=== PATIENT | female | born 1950 | race Caucasian/White ===

== ENCOUNTER 2020-03-30 08:19 | Outpatient (REF) | payer MEDICARE, SELFPAY ==
[2020-03-30 11:12] LABS: Glucose Urine UA NEG (NEG); Leukocyte Esterase Urine NEG (NEG); Nitrite Urine NEG (NEG); Specific Gravity - Urine 1.025 (1.005-1.025); Urine Blood NEG (NEG); Urine Ketones NEG (NEG); Urine Protein NEG (NEG-TRACE)
[2020-03-30 11:14] LABS: Appearance Urine CLEAR; Color Urine YELLOW
[2020-03-30 12:01] LABS: Vitamin D 25-OH Total 47.7 ng/mL (>30)
[2020-03-30 12:02] LABS: Alanine Aminotransferase 34 U/L (0-31); Albumin Level 4.6 g/dL (3.5-5.0); Alkaline Phosphatase 95 U/L (39-117); Anion Gap 14 (12-20); Aspartate Amino Transferase 27 U/L (5-31); Bilirubin Total 1.1 mg/dL (0.0-1.0); Blood Urea Nitrogen 17 mg/dL (9-16); Calcium 9.6 mg/dL (8.4-10.2); Carbon Dioxide 28 mmol/L (22-29); Chloride 102 mmol/L (96-108); Cholesterol 200 mg/dL; Estimated Glomerular Filt Rate > 60; Glucose Fasting 84 mg/dL (60-99); HDL Cholesterol 47 mg/dL; LDL Cholesterol Calculated 121 mg/dl; Potassium 3.9 mmol/l (3.3-5.1); Sodium 140 mmol/L (135-145); Triglycerides 160 mg/dL
[2020-03-30 12:18] LABS: Folate 18.1 ng/mL (> or = 4.0); Vitamin B12 334 pg/mL (200-900)
== END 2020-03-30 08:20 | disposition home or self-care (01) ==
LOC: HO.HMGCLDS 08:19
PROVIDERS: PCP Internal Medicine; Visit Provider Internal Medicine
DX: E78.5 Hyperlipidemia, unspecified (principal); M85.80 Other specified disorders of bone density and structure, unspecified site; I10 Essential (primary) hypertension
CPT/HCPCS: 80053; 80061; 81003; 82306; 82607; 82746

== ENCOUNTER 2021-02-16 07:28 | Outpatient (REF) | payer MEDICARE, SELFPAY ==
[2021-02-16 11:31] LABS: Hematocrit 40.8 % (37.0-47.0); Hemoglobin 13.1 g/dl (12.0-16.0); Mean Corpuscular HGB Conc 32.1 g/dl (31.0-35.0); Mean Corpuscular Hemoglobin 25.8 pg (27.0-33.0); Mean Corpuscular Volume 80.5 fL (80.0-98.0); Mean Platelet Volume 9.7 fL (9.4-12.3); Platelet Count 253 X10*3/uL (160-400); Red Blood Count 5.07 X10*6/uL (4.20-5.50); Red Cell Distribution Width 14.9 % (11.0-16.0); White Blood Count 6.4 X10*3/uL (4.8-10.8)
[2021-02-16 12:15] LABS: Alanine Aminotransferase 21 U/L (0-31); Albumin Level 4.3 g/dL (3.5-5.0); Alkaline Phosphatase 89 U/L (39-117); Anion Gap 14 (12-20); Aspartate Amino Transferase 22 U/L (5-31); Bilirubin Total 1.1 mg/dL (0.0-1.0); Blood Urea Nitrogen 20 mg/dL (9-16); Calcium 9.8 mg/dL (8.4-10.2); Carbon Dioxide 29 mmol/L (22-29); Chloride 105 mmol/L (96-108); Cholesterol 197 mg/dL; Estimated Glomerular Filt Rate > 60; Glucose Fasting 88 mg/dL (60-99); HDL Cholesterol 43 mg/dL; LDL Cholesterol Calculated 126 mg/dl; Potassium 4.1 mmol/L (3.3-5.1); Sodium 144 mmol/L (135-145); Total Protein 6.9 g/dL (6.5-8.0); Triglycerides 143 mg/dL
== END 2021-02-16 07:29 | disposition home or self-care (01) ==
LOC: HO.HMGCLDS 07:28
PROVIDERS: PCP Internal Medicine; Visit Provider Internal Medicine
DX: E78.5 Hyperlipidemia, unspecified (principal); I10 Essential (primary) hypertension
CPT/HCPCS: 36415; 80053; 80061; 85027

== ENCOUNTER 2021-11-05 07:37 | Outpatient (REF) | payer MEDICARE, SELFPAY ==
[2021-11-05 11:35] LABS: Appearance Urine CLEAR; Color Urine YELLOW; Glucose Urine UA NEG (NEG); Leukocyte Esterase Urine NEG (NEG); Nitrite Urine NEG (NEG); PH 7.5 (5.0-8.0); Urine Blood NEG (NEG); Urine Ketones NEG (NEG); Urine Protein NEG (NEG-TRACE)
[2021-11-05 11:47] LABS: Hematocrit 41.5 % (37.0-47.0); Hemoglobin 13.5 g/dl (12.0-16.0); Mean Corpuscular HGB Conc 32.5 g/dl (31.0-35.0); Mean Corpuscular Hemoglobin 26.3 pg (27.0-33.0); Mean Corpuscular Volume 80.7 fL (80.0-98.0); Mean Platelet Volume 9.8 fL (9.4-12.3); Platelet Count 268 X10*3/uL (160-400); Red Blood Count 5.14 X10*6/uL (4.20-5.50); Red Cell Distribution Width 14.5 % (11.0-16.0); White Blood Count 6.1 X10*3/uL (4.8-10.8)
[2021-11-05 12:00] LABS: Alanine Aminotransferase 20 U/L (0-31); Albumin Level 4.5 g/dL (3.5-5.0); Alkaline Phosphatase 88 U/L (39-117); Anion Gap 15 (12-20); Aspartate Amino Transferase 23 U/L (5-31); Bilirubin Total 1.4 mg/dL (0.0-1.0); Blood Urea Nitrogen 16 mg/dL (9-16); Calcium 9.7 mg/dL (8.4-10.2); Carbon Dioxide 28 mmol/L (22-29); Chloride 102 mmol/L (96-108); Cholesterol 202 mg/dL; Estimated Glomerular Filt Rate > 60; Glucose Random 100 mg/dL (60-115); HDL Cholesterol 41 mg/dL; LDL Cholesterol Calculated 136 mg/dl; Sodium 141 mmol/L (135-145); TSH reflex Free T4 1.62 uIU/mL (0.32-4.0); Total Protein 6.8 g/dL (6.5-8.0); Triglycerides 126 mg/dL
[2021-11-05 12:40] LABS: Squamous Epithelial Cell Urine TRACE /LPF; WBC Urine 0-2 /HPF (0-4)
[2021-11-05 12:41] LABS: RBC Urine 0-2 /HPF (0)
== END 2021-11-05 07:38 | disposition home or self-care (01) ==
LOC: HO.HMGCLDS 07:37
PROVIDERS: PCP Internal Medicine; Visit Provider Internal Medicine
DX: Z00.00 Encounter for general adult medical examination without abnormal findings (principal); I10 Essential (primary) hypertension; J45.909 Unspecified asthma, uncomplicated; E78.5 Hyperlipidemia, unspecified
CPT/HCPCS: 36415; 80053; 80061; 81001; 84443; 85027

== ENCOUNTER 2022-02-27 07:11 | Outpatient (REF) | payer MEDICARE, SELFPAY ==
[2022-02-27 11:28] LABS: Alanine Aminotransferase 24 U/L (0-31); Albumin Level 4.5 g/dL (3.5-5.0); Alkaline Phosphatase 99 U/L (39-117); Anion Gap 14 (12-20); Aspartate Amino Transferase 24 U/L (5-31); Bilirubin Total 1.2 mg/dL (0.0-1.0); Blood Urea Nitrogen 17 mg/dL (9-16); Calcium 9.6 mg/dL (8.4-10.2); Carbon Dioxide 30 mmol/L (22-29); Chloride 102 mmol/L (96-108); Cholesterol 175 mg/dL; Estimated Glomerular Filt Rate > 60; Glucose Fasting 93 mg/dL (60-99); HDL Cholesterol 47 mg/dL; LDL Cholesterol Calculated 104 mg/dl; Potassium 4.1 mmol/L (3.3-5.1); Sodium 142 mmol/L (135-145); Total Protein 6.9 g/dL (6.5-8.0); Triglycerides 122 mg/dL
== END 2022-02-27 07:12 | disposition home or self-care (01) ==
LOC: HO.HMGCLDS 07:11
PROVIDERS: PCP Internal Medicine; Visit Provider Internal Medicine
DX: E78.5 Hyperlipidemia, unspecified (principal); I10 Essential (primary) hypertension
CPT/HCPCS: 36415; 80053; 80061

== ENCOUNTER 2023-01-27 07:31 | Outpatient (REF) | payer MEDICARE, SELFPAY ==
[2023-01-27 12:48] LABS: Alanine Aminotransferase 27 U/L (0-31); Albumin Level 4.2 g/dL (3.5-5.0); Alkaline Phosphatase 60 U/L (39-117); Anion Gap 15 (12-20); Aspartate Amino Transferase 28 U/L (5-31); Blood Urea Nitrogen 16 mg/dL (9-16); Calcium 9.8 mg/dL (8.4-10.2); Carbon Dioxide 28 mmol/L (22-29); Chloride 105 mmol/L (96-108); Cholesterol 161 mg/dL (<200); Estimated Glomerular Filt Rate > 60; Glucose Fasting 95 mg/dL (60-99); HDL Cholesterol 43 mg/dL (>40); LDL Cholesterol Calculated 101 mg/dL (<100); Potassium 3.6 mmol/L (3.3-5.1); Sodium 144 mmol/L (135-145); Total Protein 6.9 g/dL (6.5-8.0); Triglycerides 87 mg/dL (<150)
[2023-01-27 13:13] LABS: Vitamin D 25-OH Total 85.5 ng/mL (>30)
== END 2023-01-27 07:32 | disposition home or self-care (01) ==
LOC: HO.HMGCLDS 07:31
PROVIDERS: PCP Internal Medicine; Visit Provider Internal Medicine
DX: I10 Essential (primary) hypertension (principal); M81.0 Age-related osteoporosis without current pathological fracture; E55.9 Vitamin D deficiency, unspecified
CPT/HCPCS: 36415; 80053; 80061; 82306

== ENCOUNTER 2023-02-14 08:19 | Outpatient (AMB) | payer MEDICARE, SELFPAY ==
[2023-02-14 08:21] VITALS: BP 120/64; PULSE 72; O2SAT 100; BMI 24.6
--- NOTE | 2023-02-14 08:21 | MHC.PC.OV ---
Vital Signs 02/14/23 08:21 Height 5 ft 1 in Weight 130 lb 4 oz BMI 24.6 BP 120/64 Blood Pressure Location Lt brachial Position Sitting Pulse 72 Pulse Source Pulse Oximeter Pulse Oximetry (%) 100 Oxygen Delivery Method Room Air Intake Visit Reasons: Medication Follow Up Intake Note: pt is here to go over lab results Allergies bee venom protein (honey bee) Allergy (Intermediate, Verified 02/14/23 08:25) Facial Swelling adhesive tape Allergy (Unknown, Verified 02/14/23 08:25) rash aspirin Allergy (Unknown, Verified 02/14/23 08:25) bleeding cortisone Allergy (Unknown, Verified 02/14/23 08:25) stroke like symptoms Iodinated Contrast Media Allergy (Unknown, Verified 02/14/23 08:25) stroke like symptoms latex Allergy (Unknown, Verified 02/14/23 08:25) rash morphine Allergy (Unknown, Verified 02/14/23 08:25) severe vomiting pravastatin [Pravachol] Allergy (Unknown, Verified 02/14/23 08:25) muscle pain and shakiness atorvastatin [Lipitor] Adverse Reaction (Unknown, Verified 02/14/23 08:25) muscle weakness Medication List - Last Reconciled 02/14/23 by Gwen Salomon MD albuterol sulfate 90 mcg/actuation 2 puffs inhalation Q4-6H PRN alendronate (Fosamax) 70 mg PO QWEEK betamethasone dipropionate 0.05% appl topical BID cholecalciferol (vitamin D3) 125 mcg PO DAILY coQ10 (ubiquinol) (Qunol Alberto CoQ10) 100 mg PO BID CPAP (CPAP Machine/Device) 5 cm of H2O pressure with large WISP nasal mask CPAP (CPAP Machine/Device) wear CPAP at bedtime; ranging from 6cm to 20cm H2O hydrochlorothiazide 25 mg PO DAILY [id number]-lgy-glpfyoc-ast 1,000-230-60 mg (MegaRed [place]-3 Krill Oil) 1 cap PO BEDTIME lovastatin 40 mg PO DAILY Tobacco use date assessed: 02/14/23 Fall risk assessment: 1 Fall in past year Last assessed Fall Risk: 02/14/23 Dental Screening Dental Screen Date: 02/14/23 Did you have a dental visit in the last 12 months?: Yes Did you have a dental problem in the last 6 months where you did not have access to dental care?: No Was dental information given to patient?: Patient has dentist HPI Medication Follow Up HPI Details Patient presents for the follow-up of hypertension hyperlipidemia and osteoporosis. [facility] Medical History GERD (gastroesophageal reflux disease) Osteopenia Annual physical exam Right wrist joint infection KODY (obstructive sleep apnea) HTN (hypertension) Asthma Carpal tunnel syndrome Hyperlipidemia Surgical History History of kidney stones History of colonoscopy History of cataract surgery History of appendectomy History of shoulder surgery Family History Mother Colon cancer HTN (hypertension) Sister COPD (chronic obstructive pulmonary disease) Father Diabetes mellitus HTN (hypertension) Myocardial infarction Social History Housing: House Alcohol intake: current Alcohol intake frequency: does not drink Patient Tobacco Use Status: Never used Tobacco e-Cigarette/Vaping Use: Never Used Current occupational status: retired Cognitive needs: No Hearing needs: No Vision needs: Yes Questionnaire PHQ-9 Over the last 2 weeks, how often have you been bothered by any of the following problems? 1. Little interest or pleasure in doing things: not at all 2. Feeling down, depressed, or hopeless: not at all 3. Trouble falling or staying asleep, or sleeping too much: not at all 4. Feeling tired or having little energy: not at all 5. Poor appetite or overeating: not at all 6. Feeling bad about yourself - or that you are a failure or have let yourself or your family down: not at all 7. Trouble concentrating on things, such as reading the newspaper or watching television: not at all 8. Moving or speaking so slowly that other people could have noticed. Or the opposite - being so fidgety or restless that you have been moving around a lot more than usual: not at all 9. Thoughts that you would be better off or of hurting yourself in some way: not at all Total score: 0 Source: Developed by Drs. Dylan Farooq, Trista Corbin, Power Pena and colleagues, with an educational sky from [employer]. Thrive Questionnaire Date Thrive assessed: 02/14/23 I am a: Patient What is your living situation today?: I have a steady place to live Within the past 12 months, did the food you bought not last and you didn't have the money to get more?: Never true Within the past 12 months, did you worry whether your food would run out before you got money to buy more?: Never true Do you have trouble paying for medicines?: No Do you have trouble getting transportation to medical appointments?: No Do you have trouble paying your heating and electricity bill?: No Do you have trouble taking care of your child, family member or friend?: No Do you have trouble with day-to-day activities such as bathing, preparing meals, shopping, managing finances, etc.?: No Are you currently unemployed and looking for a job?: No Are you interested in more education?: No VERONICA-7 AMB Questionnaire VERONICA-7 Date VERONICA - 7 assessed: 02/14/23 Feeling nervous, anxious, or on edge: 0 = Not at all Not being able to stop or control worryin = Not at all Worrying too much about different things: 0 = Not at all Trouble relaxin = Not at all Being so restless that it is hard to sit still: 0 = Not at all Becoming easily annoyed or irritable: 0 = Not at all Feeling afraid as if something awful might happen: 0 = Not at all Total VERONICA-7 score (0-4 normal; 5-9 mild; 10-14 moderate; 15-21 severe): 0 Source: Developed by Drs. Dylan Farooq, Trista Corbin, Power Pena and colleagues, with an educational sky from [employer]. Review of Systems Const All systems reviewed & are unremarkable except as noted in HPI and below Reports no additional complaints Eyes Reports no additional complaints ENT Reports no additional complaints Card Reports no additional complaints Resp Reports no additional complaints GI Reports no additional complaints Reports no additional complaints Physical exam (Primary Care) Vital Signs: Last Vital Signs Pulse 72 02/14/23 08:21 BP 120/64 02/14/23 08:21 Pulse Ox 100 02/14/23 08:21 Oxygen Delivery Method Room Air 02/14/23 08:21 BMI result Body Mass Index 24.6 Tobacco/Smoking Status: Tobacco use Status Tobacco use date assessed 02/14/23 02/14/23 08:29 Patient Tobacco Use Status Never used Tobacco 02/14/23 08:29 e-Cigarette/Vaping Use Never Used 02/14/23 08:29 PHQ-9: PHQ-9 Score PHQ-9: Total score 0 02/14/23 09:21 Thrive Assessment: Date of Thrive Assessment Date Thrive assessed 02/14/23 02/14/23 09:21 Const General: no acute distress Resp Effort & Inspection: normal respiratory effort Auscultation: clear to auscultation bilaterally Cardio Rhythm: regular rhythm Heart sounds: S1 normal heart sound present and S2 normal heart sound present GI Inspection: Yes normal to inspection Assessment and Plan Assessment & Plan (1) HTN (hypertension): Code(s): I10 - Essential (primary) hypertension Plan: Continue hydrochlorothiazide (2) Age related osteoporosis: Comment: DEXA 11/19 Tscore -2.8, started Fosamax Code(s): M81.0 - Age-related osteoporosis without current pathological fracture Plan: Continue Fosamax and vitamin-D (3) Hyperlipidemia: Code(s): E78.5 - Hyperlipidemia, unspecified Plan: Continue statin, return for physical in May Orders: Orders Basic Metabolic Panel Fasting 1 Week I10 - Essential (primary) hypertension Medications: Changed From alendronate (Fosamax) Schedule next PCP appt for future refills 70 mg PO QWEEK 12 tabs 0RF To alendronate (Fosamax) 70 mg PO QWEEK 12 tabs 3RF Coding Level of Care Code Est Pt Level 4 (97394) Diagnoses HTN (hypertension) I10 Age related osteoporosis M81.0 Hyperlipidemia E78.5
== END 2023-02-14 09:26 | disposition home or self-care (01) ==
PROVIDERS: PCP Internal Medicine; Visit Provider Internal Medicine
DX: I10 Essential (primary) hypertension (principal); M81.0 Age-related osteoporosis without current pathological fracture; E78.5 Hyperlipidemia, unspecified
CPT/HCPCS: 99214

== ENCOUNTER 2023-03-20 07:24 | Outpatient (REF) | payer MEDICARE, SELFPAY ==
[2023-03-20 12:24] LABS: Anion Gap 12 (12-20); Blood Urea Nitrogen 20 mg/dL (9-16); Calcium 9.8 mg/dL (8.4-10.2); Carbon Dioxide 30 mmol/L (22-29); Chloride 104 mmol/L (96-108); Estimated Glomerular Filt Rate > 60; Glucose Fasting 94 mg/dL (60-99); Potassium 3.5 mmol/L (3.3-5.1); Sodium 142 mmol/L (135-145)
== END 2023-03-20 07:25 | disposition home or self-care (01) ==
LOC: HO.HMGCLDS 07:24
PROVIDERS: PCP Internal Medicine; Visit Provider Internal Medicine
DX: I10 Essential (primary) hypertension (principal)
CPT/HCPCS: 36415; 80048

== ENCOUNTER 2023-05-28 08:16 | Outpatient (AMB) | payer MEDICARE, SELFPAY ==
[2023-05-28 08:31] VITALS: BP 124/66; PULSE 70; O2SAT 98; BMI 25.3
--- NOTE | 2023-05-28 08:31 | AM.OFFVISMDC ---
Intake Vital Signs 05/28/23 08:31 Height 5 ft 1 in Weight 134 lb BMI 25.3 BP 124/66 Blood Pressure Location Lt brachial Position Sitting Pulse 70 Pulse Source Pulse Oximeter Pulse Oximetry (%) 98 Oxygen Delivery Method Room Air Intake Visit Reasons: AWV Intake Note: Pt is here today for AWV. Allergies bee venom protein (honey bee) Allergy (Intermediate, Verified 05/28/23 08:35) Facial Swelling adhesive tape Allergy (Unknown, Verified 05/28/23 08:35) rash aspirin Allergy (Unknown, Verified 05/28/23 08:35) bleeding cortisone Allergy (Unknown, Verified 05/28/23 08:35) stroke like symptoms Iodinated Contrast Media Allergy (Unknown, Verified 05/28/23 08:35) stroke like symptoms latex Allergy (Unknown, Verified 05/28/23 08:35) rash morphine Allergy (Unknown, Verified 05/28/23 08:35) severe vomiting pravastatin [Pravachol] Allergy (Unknown, Verified 05/28/23 08:35) muscle pain and shakiness atorvastatin [Lipitor] Adverse Reaction (Unknown, Verified 05/28/23 08:35) muscle weakness Medication List - Last Reconciled 05/28/23 by Gwen Salomon MD albuterol sulfate 90 mcg/actuation 2 puffs inhalation Q4-6H PRN alendronate (Fosamax) 70 mg PO QWEEK betamethasone dipropionate 0.05% appl topical BID cholecalciferol (vitamin D3) 125 mcg PO DAILY coQ10 (ubiquinol) (Qunol Alberto CoQ10) 100 mg PO BID CPAP (CPAP Machine/Device) 5 cm of H2O pressure with large WISP nasal mask CPAP (CPAP Machine/Device) wear CPAP at bedtime; ranging from 6cm to 20cm H2O [id number]-[id number]-aus-[id number]-ast 1,000-230-60 mg (MegaRed [place]-3 Krill Oil) 1 cap PO BEDTIME lovastatin 40 mg PO DAILY HPI AWV HPI Details Patient presents for annual visit. She complains of feeling tired and having joint and muscle achiness worse in the evening. Patient denies joint swelling or morning stiffness. She has not been using CPAP because is not able to tolerate it. Patient tried different masks in the past and would like to be referred to Pulmonary Clinic at [facility]. Initiated the conversation about Advanced Directives. Advanced Directives help? patients prepare for current and future decisions about their medical treatment? and place of care. Discussed with patient that it is a process where a patients? current condition and prognosis are reviewed, their wishes for information? regarding their illness are elicited, and likely medical dilemmas are presented? and options discussed. The form can be amended as needed, reviewed yearly and? make changes as needed IPPE/AWV ? year old presents? for her ? Annual? Wellness Visit, initial visit.? Medical / Social History Reviewed? Past Medical History ?Yes? . ? [place]? of Care / Care Team list updated ?Yes . ? Surgical/Hospitalization? History ?Yes . ? Current Medications? (including OTC and supplements) ?Yes . ? Family History ?Yes? . ? Tobacco? Control form ?Yes . ? AUDIT-C (Alcohol use) form? ?Yes . ? Illicit drug use in Social? History ?Yes . ? Current diagnosis of? depression? ?No ? Appropriate PHQ2/PHQ9? completed ?Yes . ? Data entered by ?Medical? Distribution Technician and reviewed by provider ? Fall Risk ? Fall? History? Have you had any falls with? injury in the past year? ?No . ? Have you had two or more? falls in the past year? ?No . ? Fall Risk Assessment: ?No? falls in the past year . ? HRA filled out by? the patient, reviewed by Provider and scanned. ? IPPE/AWV ? Balance? [place]? ?Yes . ? Tandem? walk ?Yes . ? Walk and? Turn ?Yes . ? Rise from? sit to stand ?Yes . ?Vision? Corrective? lens ?Yes ? Vision? screen ? Up-to-date, has an appointment [] for vision? screening and glaucoma screening ?Hearing? Whisper? test ?pass .? Initiated the conversation about Advanced Directives. Advanced Directives help? patients prepare for current and future decisions about their medical treatment? and place of care. Discussed with patient that it is a process where a patients? current condition and prognosis are reviewed, their wishes for information? regarding their illness are elicited, and likely medical dilemmas are presented? and options discussed. The form can be amended as needed, reviewed yearly and? make changes as needed Written? Plan?Completed. See Patient? Documents. COUNT INCLUDES [facility] Medical History (Updated 05/28/23 @ 09:13 by Gwen Salomon MD) GERD (gastroesophageal reflux disease) Annual physical exam Right wrist joint infection KODY (obstructive sleep apnea) HTN (hypertension) Asthma Carpal tunnel syndrome Hyperlipidemia Surgical History History of kidney stones History of colonoscopy History of cataract surgery History of appendectomy History of shoulder surgery Family History (Updated 05/28/23 @ 08:37 by Sarah Cadet Edilia) Mother Colon cancer HTN (hypertension) Sister COPD (chronic obstructive pulmonary disease) Father Diabetes mellitus HTN (hypertension) Myocardial infarction Social History Housing: House Alcohol intake: current Alcohol intake frequency: does not drink Patient Tobacco Use Status: Never used Tobacco e-Cigarette/Vaping Use: Never Used Current occupational status: retired Cognitive needs: No Hearing needs: No Vision needs: Yes Questionnaire Medicare Wellness Checkup [age] What gender do you identify with?: female During the past 4 weeks, how much have you been bothered by emotional problems such as feeling anxious, depressed, irritable, sad or downhearted, and blue?: not at all During the past 4 weeks, has your physical & emotional health limited your social activities with family, friends, neighbors, or groups?: not at all During the past 4 weeks, how much bodily pain have you generally had?: very mild pain During the past 4 weeks, was someone available to help you if you needed & wanted help?: yes, as much as I wanted During the past 4 weeks, what was the hardest physical activity you could do for at least 2 minutes?: very heavy Can you get to places out of walking distance without help? (For eg., can you travel alone on buses, taxis or drive your car?): Yes Can you go shopping for groceries or clothes without someone's help?: Yes Can you prepare your own meals?: Yes Can you do your housework without help?: Yes Because of any health problems, do you need the help of another person with your personal care needs such as eating, bathing, dressing or getting around the house?: No Can you handle your own money without help?: Yes During the past 4 weeks, how would you rate your health in general?: very good During the past 4 weeks how have things been going for you?: very well; could hardly better Are you having difficulties driving your car?: no Do you always fasten your seat belt when you are in a car?: yes, usually During past 4 weeks, have you been bothered by the following: never: Falling or dizzy when standing up, Sexual problems?, Trouble eating well?, Teeth or denture problems? and Problems using the telephone? and sometimes: Tiredness or fatigue? Have you fallen 2 or more times in the past year?: No Are you afraid of falling?: No Are you a smoker?: no During the past 4 weeks, how many drinks of wine, beer, or other alcoholic beverages did you have?: no alcohol at all Do you exercise for about 20 minutes 3 or more times a week?: yes, most of the time Have you been given information to help with the following?: yes: Hazards in your house that might hurt you? and yes: Keeping track of your medications? How often do you have trouble taking medicines the way you have been told to take them?: I always take medicine as prescribed How confident are you that you can control & manage most of your health problems?: very confident What is your race?: White Mini Mental State Exam (MMSE) Orientation What is the (year) (season) (date) (day) (month)?: year, season, date, day and month Where are we (state) (county) (town or city) (hospital) (floor)?: state, county, town or city, hospital/clinic and floor Registration Name of 3 unrelated objects clearly and slowly, then ask patient to repeat all 3 of them. (1st repeat determines score. Make sure they can repeat all three): object 1, object 2 and object 3 Attention & Calculation (CHOOSE ONE) Spell WORLD backwards (DLROW): 5 letters Recall Ask patient to repeat the 3 items from question #3.: object 1, object 2 and object 3 Language Show patient a wristwatch & ask what it is. Repeat for pencil.: watch and pencil Ask the patient to repeat the phrase 'No ifs, ands, or buts' after you.: correct Ask the patient to 'take a piece of paper with their right hand' 'fold paper in half' 'place paper on floor': take paper in right hand, fold paper in half and place paper on floor Print the sentence 'CLOSE YOUR EYES' on a piece. If patient actually closes eyes then score.: followed written direction Give patient a blank piece of paper & ask to write a sentence. Score if it contains a noun & verb.: sentence contains subject and verb Score Score: 29 Activity of Daily Living Bathing - sponge bath, tub bath or shower: receives no assistance (gets in/out by self, if usual bathing means Dressing - getting clothes from closets & drawers, including inner/outer garments & fasteners.: gets clothes & gets completely dressed without help Toileting - going to the 'toilet room' for urine/bowel elimination & cleaning self/arranging clothes: goes to toilet room, cleans self, arranges clothes without help Transfer: moves in & out of bed and chair without help (may use support object) Continence: controls urination/bowel movements completely by self Feeding: feeds self without help Total Score: 0 Information obtained from: patient Using telephone: independent Traveling: independent Shopping: independent Preparing meals: independent Housework: independent Taking medicine: independent Managing money: independent PHQ-9 Over the last 2 weeks, how often have you been bothered by any of the following problems? 1. Little interest or pleasure in doing things: not at all 2. Feeling down, depressed, or hopeless: not at all 3. Trouble falling or staying asleep, or sleeping too much: several days 4. Feeling tired or having little energy: several days 5. Poor appetite or overeating: not at all 6. Feeling bad about yourself - or that you are a failure or have let yourself or your family down: not at all 7. Trouble concentrating on things, such as reading the newspaper or watching television: not at all 8. Moving or speaking so slowly that other people could have noticed. Or the opposite - being so fidgety or restless that you have been moving around a lot more than usual: not at all 9. Thoughts that you would be better off or of hurting yourself in some way: not at all Total score: 2 Depression Screening Interpretation: Negative Depression Screening Done: Yes Source: Developed by Drs. Dylan Farooq, Trista Corbin, Power Pena and colleagues, with an educational sky from [employer]. Review of Systems Const All systems reviewed & are unremarkable except as noted in HPI and below Reports no additional complaints Eyes Reports no additional complaints ENT Reports no additional complaints Card Reports no additional complaints Resp Reports no additional complaints GI Reports no additional complaints Reports no additional complaints Musc Reports no additional complaints Physical Exam Vital Signs: Last Vital Signs Pulse 70 05/28/23 08:31 BP 124/66 05/28/23 08:31 Pulse Ox 98 05/28/23 08:31 Oxygen Delivery Method Room Air 05/28/23 08:31 BMI result Body Mass Index 25.3 Const General: no acute distress HEENT Head: Yes normal to inspection Eyes General: appearance normal, both eyes and all related structures Neck Neck: Yes no lymphadenopathy and Yes supple Resp Effort & Inspection: normal respiratory effort Auscultation: clear to auscultation bilaterally Cardio Rhythm: regular rhythm Heart sounds: S1 normal heart sound present and S2 normal heart sound present GI Inspection: Yes normal to inspection Palpation (GI): Soft to palpation and No hepatosplenomegaly present Auscultation: normal bowel sounds Extrem General: Yes no clubbing, cyanosis or edema Assessment & Plan Assessment & Plan (1) KODY (obstructive sleep apnea): Comment: for 10 years not able to tolerate Cpap, used to see pulmonology in [place] Code(s): G47.33 - Obstructive sleep apnea (adult) (pediatric) Plan: refer to [facility] Pulmonology (2) Age related osteoporosis: Comment: DEXA 11/19 Tscore -2.8, started Fosamax Code(s): M81.0 - Age-related osteoporosis without current pathological fracture Plan: Continue vitamin-D and Fosamax until February when patient is due to recheck DEXA (3) Annual physical exam: Code(s): Z00.00 - Encounter for general adult medical examination without abnormal findings Plan: well balanced diet, regular exercise discussed (4) Hyperlipidemia: Code(s): E78.5 - Hyperlipidemia, unspecified Plan: Continue lovastatin and CO Q10. If the muscle aches continues patient was advised to hold lovastatin for a month (5) HTN (hypertension): Code(s): I10 - Essential (primary) hypertension Plan: Decrease hydrochlorothiazide to 12.5 mg and check comprehensive panel for borderline low potassium level. Follow-up in 3 months Orders: Orders Comprehensive [place]. Panel Fast 3 Months I10 - Essential (primary) hypertension Referrals Pulmonology Referral G47.33 - Obstructive sleep apnea (adult) (pediatric) Medications: Discontinued hydrochlorothiazide Discontinued Reason: Doctor's Order 25 mg PO DAILY 90 tabs 3RF Quality Reporting (2019) Depression/Bipolar (159/160/161/177) PHQ-9: Total score: 2 Coding Level of Care Code Medicare Subsequent (G0439) Diagnoses KODY (obstructive sleep apnea) G47.33 Age related osteoporosis M81.0 Annual physical exam Z00.00 Hyperlipidemia E78.5 HTN (hypertension) I10 CPT Codes Advance Care Planning - Time spent: 1-15 minutes, not on file ([id number]) Advance Care Planning Advance Care Planning discussion: Exists, not on file Forms completed: Health Care Proxy Time spent: 1-15 minutes, not on file
== END 2023-05-28 09:09 | disposition home or self-care (01) ==
PROVIDERS: PCP Internal Medicine; Visit Provider Internal Medicine
DX: Z00.00 Encounter for general adult medical examination without abnormal findings (principal); G47.33 Obstructive sleep apnea (adult) (pediatric); M81.0 Age-related osteoporosis without current pathological fracture; E78.5 Hyperlipidemia, unspecified; I10 Essential (primary) hypertension
CPT/HCPCS: 1124F; G0439

== ENCOUNTER 2023-08-15 12:53 | Outpatient (AMB) | payer MEDICARE, SELFPAY ==
[2023-08-15 12:53] VITALS: BP 120/70; PULSE 65; TEMP 36.3; O2SAT 98; BMI 24.9
--- NOTE | 2023-08-15 12:53 | AM.OFFWIN_ITS ---
Intake Vital Signs 08/15/23 12:53 Height 5 ft 1 in Weight 132 lb BMI 24.9 BP 120/70 Blood Pressure Location Lt brachial Position Sitting Pulse 65 Pulse Source Pulse Oximeter Temp 97.4 F Temp Source Temporal Artery Scan Pulse Oximetry (%) 98 Oxygen Delivery Method Room Air Intake Visit Reasons: EP diarreah/dehydration Intake Note: pt is here today for diarreah and dehydration started 1 week ago Patient Tobacco Use Status: Never used Tobacco Allergies bee venom protein (honey bee) Allergy (Intermediate, Verified 08/15/23 12:59) Facial Swelling adhesive tape Allergy (Unknown, Verified 08/15/23 12:59) rash aspirin Allergy (Unknown, Verified 08/15/23 12:59) bleeding cortisone Allergy (Unknown, Verified 08/15/23 12:59) stroke like symptoms Iodinated Contrast Media Allergy (Unknown, Verified 08/15/23 12:59) stroke like symptoms latex Allergy (Unknown, Verified 08/15/23 12:59) rash morphine Allergy (Unknown, Verified 08/15/23 12:59) severe vomiting pravastatin [Pravachol] Allergy (Unknown, Verified 08/15/23 12:59) muscle pain and shakiness atorvastatin [Lipitor] Adverse Reaction (Unknown, Verified 08/15/23 12:59) muscle weakness Do you need a note to return to daycare/school/sports/work: No HPI HPI Comments History of Present Illness Details 72 y/o female patient who presents to [facility] in clinic with c/o Diarrhea associated with abdominal cramping x 1 week. PFS Medical History (Updated 05/28/23 @ 09:13 by Gwen Salomon MD) GERD (gastroesophageal reflux disease) Annual physical exam Right wrist joint infection KODY (obstructive sleep apnea) HTN (hypertension) Asthma Carpal tunnel syndrome Hyperlipidemia Surgical History History of kidney stones History of colonoscopy History of cataract surgery History of appendectomy History of shoulder surgery Family History (Updated 05/28/23 @ 08:37 by Sarah Cadet [facility]) Mother Colon cancer HTN (hypertension) Sister COPD (chronic obstructive pulmonary disease) Father Diabetes mellitus HTN (hypertension) Myocardial infarction Social History Housing: House Alcohol intake: current Alcohol intake frequency: does not drink Patient Tobacco Use Status: Never used Tobacco e-Cigarette/Vaping Use: Never Used Current occupational status: retired Cognitive needs: No Hearing needs: No Vision needs: Yes Review of Systems Const All systems reviewed & are unremarkable except as noted in HPI and below Physical Exam Vital Signs: Last Vital Signs Temp 97.4 F 08/15/23 12:53 Pulse 65 08/15/23 12:53 BP 120/70 08/15/23 12:53 Pulse Ox 98 08/15/23 12:53 Oxygen Delivery Method Room Air 08/15/23 12:53 BMI result Body Mass Index 24.9 Const General: comfortable and no acute distress Orientation/consciousness: patient oriented x3 GI Palpation (GI): Soft to palpation, not firm, Tenderness to palpation present (GI) suprapubicly, no guarding, not rigid, No hepatosplenomegaly present, no hernias and no masses Auscultation: Hypoactive bowel sounds present Rectal Exam - Female: deferred Neuro General: patient oriented x3, gait normal and moves all extremities Psych Speech and movement: Normal speech and movement present Assessment & Plan Assessment & Plan (1) Gastritis: Code(s): K29.70 - Gastritis, unspecified, without bleeding Qualifiers: Chronicity: acute Gastritis bleeding: without bleeding Gastritis type: other gastritis Qualified Code(s): K29.00 - Acute gastritis without bleeding Plan: Avoid foods with high fat content. Advised consumption of boiled starches (eg, potatoes, noodles, rice, wheat, and oat) with salt; crackers, bananas, soup, and boiled vegetables. Stay Hydrated Medications: New metoclopramide HCl (Reglan) 10 mg PO Q6H PRN 30 tabs 0RF nausea and vomiting K29.00 - Acute gastritis without bleeding ondansetron 8 mg PO Q8H 30 tabs 0RF Nausea and vomiting K29.00 - Acute gastritis without bleeding loperamide administer after each loose stool until symptoms controlled; do not exceed 8 mg per 24 hrs 2 mg PO Q4H PRN 30 caps 0RF loose stool Coding Level of Care Code Est Pt Level 3 (94923) Diagnoses Other acute gastritis without hemorrhage K29.00 Chronicity: acute Gastritis bleeding: without bleeding Gastritis type: other gastritis Time Spent (min) 15
== END 2023-08-15 15:29 | disposition home or self-care (01) ==
PROVIDERS: PCP Internal Medicine; Visit Provider Nurse Practitioner Family
DX: K29.00 Acute gastritis without bleeding (principal)
CPT/HCPCS: 99213

== ENCOUNTER 2023-08-22 07:35 | Outpatient (REF) | payer MEDICARE, SELFPAY ==
[2023-08-22 11:07] LABS: Alanine Aminotransferase 27 U/L (0-31); Albumin Level 4.2 g/dL (3.5-5.0); Alkaline Phosphatase 65 U/L (39-117); Anion Gap 10 (12-20); Aspartate Amino Transferase 27 U/L (5-31); Bilirubin Total 1.2 mg/dL (0.0-1.0); Blood Urea Nitrogen 16 mg/dL (9-16); Calcium 9.5 mg/dL (8.4-10.2); Carbon Dioxide 30 mmol/L (22-29); Chloride 105 mmol/L (96-108); Estimated Glomerular Filt Rate > 60; Glucose Fasting 90 mg/dL (60-99); Potassium 3.9 mmol/L (3.3-5.1); Sodium 141 mmol/L (135-145); Total Protein 6.8 g/dL (6.5-8.0)
== END 2023-08-22 07:36 | disposition home or self-care (01) ==
LOC: HO.HMGCLDS 07:35
PROVIDERS: PCP Internal Medicine; Visit Provider Internal Medicine
DX: I10 Essential (primary) hypertension (principal)
CPT/HCPCS: 36415; 80053

== ENCOUNTER 2023-08-27 09:41 | Outpatient (AMB) | payer MEDICARE, SELFPAY ==
--- NOTE | 2023-08-27 10:08 | MHC.PC.OV ---
Vital Signs 08/27/23 10:10 Height 5 ft 1 in Weight 135 lb BMI 25.5 BP 118/66 Blood Pressure Location Lt brachial Position Sitting Pulse 62 Pulse Source Pulse Oximeter Pulse Oximetry (%) 95 Oxygen Delivery Method Room Air Intake Visit Reasons: 3M F/U labs Intake Note: Pt is here today for 3 months follow up visit on labs. Allergies bee venom protein (honey bee) Allergy (Intermediate, Verified 08/27/23 10:12) Facial Swelling adhesive tape Allergy (Unknown, Verified 08/27/23 10:12) rash aspirin Allergy (Unknown, Verified 08/27/23 10:12) bleeding cortisone Allergy (Unknown, Verified 08/27/23 10:12) stroke like symptoms Iodinated Contrast Media Allergy (Unknown, Verified 08/27/23 10:12) stroke like symptoms latex Allergy (Unknown, Verified 08/27/23 10:12) rash morphine Allergy (Unknown, Verified 08/27/23 10:12) severe vomiting pravastatin [Pravachol] Allergy (Unknown, Verified 08/27/23 10:12) muscle pain and shakiness atorvastatin [Lipitor] Adverse Reaction (Unknown, Verified 08/27/23 10:12) muscle weakness Medication List - Last Reconciled 08/27/23 by Gwen Salomon MD albuterol sulfate 90 mcg/actuation 2 puffs inhalation Q4-6H PRN alendronate (Fosamax) 70 mg PO QWEEK betamethasone dipropionate 0.05% appl topical BID cholecalciferol (vitamin D3) 125 mcg PO DAILY coQ10 (ubiquinol) (Qunol Alberto CoQ10) 100 mg PO BID CPAP (CPAP Machine/Device) 5 cm of H2O pressure with large WISP nasal mask CPAP (CPAP Machine/Device) wear CPAP at bedtime; ranging from 6cm to 20cm H2O [id number] 1,000-230-60 mg (MegaRed Kelley-3 Krill Oil) 1 cap PO BEDTIME lovastatin 40 mg PO DAILY ondansetron 8 mg PO Q8H Tobacco use date assessed: 08/27/23 Fall risk assessment: 1 Fall in past year Last assessed Fall Risk: 08/27/23 Dental Screening Dental Screen Date: 08/27/23 Did you have a dental visit in the last 12 months?: Yes Did you have a dental problem in the last 6 months where you did not have access to dental care?: No Was dental information given to patient?: Patient has dentist HPI 3M F/U labs HPI Details Pt presents for hyperlipid. Patient had a flareup of IBS with diarrhea 2 weeks ago and is feeling better now. She has been taking probiotics and fiber supplement. Patient has a follow-up appointment with GI in October for a 5 year repeat colonoscopy [facility] Medical History (Updated 08/27/23 @ 10:45 by Gwen Salomon MD) GERD (gastroesophageal reflux disease) Annual physical exam Right wrist joint infection KODY (obstructive sleep apnea) Asthma Carpal tunnel syndrome Hyperlipidemia Surgical History History of kidney stones History of colonoscopy History of cataract surgery History of appendectomy History of shoulder surgery Family History Mother Colon cancer HTN (hypertension) Sister COPD (chronic obstructive pulmonary disease) Father Diabetes mellitus HTN (hypertension) Myocardial infarction Social History Housing: House Alcohol intake: current Alcohol intake frequency: does not drink Patient Tobacco Use Status: Never used Tobacco e-Cigarette/Vaping Use: Never Used service: No Current occupational status: retired Cognitive needs: No Hearing needs: No Vision needs: Yes Questionnaire Thrive Questionnaire Date Thrive assessed: 02/14/23 AUDIT C Alcohol Use Questionnaire (AUDIT-C) 1. How often do you have a drink containing alcohol?: Never 3. How often do you have six or more drinks on one occasion?: Never Total Score: 0 VERONICA-7 AMB Questionnaire VERONICA-7 Date VERONICA - 7 assessed: 02/14/23 Source: Developed by Drs. Dylan Farooq, Trista Corbin, Power Pena and colleagues, with an educational sky from [employer]. Review of Systems Const All systems reviewed & are unremarkable except as noted in HPI and below Eyes Reports no additional complaints ENT Reports no additional complaints Card Reports no additional complaints Resp Reports no additional complaints GI Reports no additional complaints Reports no additional complaints Physical exam (Primary Care) Vital Signs: Last Vital Signs Pulse 62 08/27/23 10:10 BP 118/66 08/27/23 10:10 Pulse Ox 95 08/27/23 10:10 Oxygen Delivery Method Room Air 08/27/23 10:10 BMI result Body Mass Index 25.5 Tobacco/Smoking Status: Tobacco use Status Tobacco use date assessed 08/27/23 08/27/23 10:16 Patient Tobacco Use Status Never used Tobacco 08/27/23 10:09 e-Cigarette/Vaping Use Never Used 08/27/23 10:09 Thrive Assessment: Date of Thrive Assessment Date Thrive assessed 02/14/23 08/27/23 10:09 Const General: no acute distress HENMT Head: Yes normal to inspection Mouth: Normal oral and palatal mucosa present Eyes General: appearance normal, both eyes and all related structures Resp Effort & Inspection: normal respiratory effort Auscultation: clear to auscultation bilaterally Cardio Rhythm: regular rhythm Heart sounds: S1 normal heart sound present and S2 normal heart sound present GI Inspection: Yes normal to inspection Palpation (GI): Soft to palpation Percussion: Yes normal to percussion Auscultation: normal bowel sounds Assessment and Plan Assessment & Plan (1) Hyperlipidemia: Code(s): E78.5 - Hyperlipidemia, unspecified Plan: Continue statin check lipid profile (2) Annual physical exam: Code(s): Z00.00 - Encounter for general adult medical examination without abnormal findings (3) Vitamin D deficiency: Code(s): E55.9 - Vitamin D deficiency, unspecified Plan: Continue vitamin-D supplement (4) IBS (irritable bowel syndrome): Comment: COLONOSCOPY 09/2020, [facility], f/u with [facility] , recheck colonoscopy 2023 Code(s): K58.9 - Irritable bowel syndrome without diarrhea Plan: Continue fiber supplements and probiotics. Patient was advised to take Imodium as needed for episodes of diarrhea. She will follow-up with the GI this summer Orders: Orders Complete Blood Count Auto Diff 6 Months E55.9 - Vitamin D deficiency, unspecified, E78.5 - Hyperlipidemia, unspecified, K58.9 - Irritable bowel syndrome without diarrhea, Z00.00 - Encounter for general adult medical examination without abnormal findings Lipid Panel 6 Months E55.9 - Vitamin D deficiency, unspecified, E78.5 - Hyperlipidemia, unspecified, K58.9 - Irritable bowel syndrome without diarrhea, Z00.00 - Encounter for general adult medical examination without abnormal findings Comprehensive [place]. Panel Fast 6 Months E55.9 - Vitamin D deficiency, unspecified, E78.5 - Hyperlipidemia, unspecified, K58.9 - Irritable bowel syndrome without diarrhea, Z00.00 - Encounter for general adult medical examination without abnormal findings Vitamin D 25-OH Total 6 Months E55.9 - Vitamin D deficiency, unspecified, E78.5 - Hyperlipidemia, unspecified, K58.9 - Irritable bowel syndrome without diarrhea, Z00.00 - Encounter for general adult medical examination without abnormal findings TSH reflex Free T4 6 Months E55.9 - Vitamin D deficiency, unspecified, E78.5 - Hyperlipidemia, unspecified, K58.9 - Irritable bowel syndrome without diarrhea, Z00.00 - Encounter for general adult medical examination without abnormal findings Medications: New dicyclomine 10 mg PO QID 90 caps 1RF Discontinued metoclopramide HCl (Reglan) Discontinued Reason: Doctor's Order 10 mg PO Q6H PRN 30 tabs 0RF nausea and vomiting K29.00 - Acute gastritis without bleeding loperamide administer after each loose stool until symptoms controlled; do not exceed 8 mg per 24 hrs Discontinued Reason: Doctor's Order 2 mg PO Q4H PRN 30 caps 0RF loose stool Coding Level of Care Code Est Pt Level 4 (41177) Diagnoses Hyperlipidemia E78.5 Annual physical exam Z00.00 Vitamin D deficiency E55.9 IBS (irritable bowel syndrome) K58.9
[2023-08-27 10:10] VITALS: BP 118/66; PULSE 62; O2SAT 95; BMI 25.5
== END 2023-08-27 10:51 | disposition home or self-care (01) ==
PROVIDERS: PCP Internal Medicine; Visit Provider Internal Medicine
DX: E78.5 Hyperlipidemia, unspecified (principal); Z00.00 Encounter for general adult medical examination without abnormal findings; E55.9 Vitamin D deficiency, unspecified; K58.9 Irritable bowel syndrome, unspecified
CPT/HCPCS: 99214

== ENCOUNTER 2023-10-22 08:17 | Outpatient (AMB) | payer MEDICARE, SELFPAY ==
--- NOTE | 2023-10-22 08:43 | AM.OFFWIN_ITS ---
Intake Vital Signs 10/22/23 08:44 Height 5 ft 1 in BP 120/80 Blood Pressure Location Lt brachial Position Sitting Pulse 78 Pulse Source Pulse Oximeter Temp 98.2 F Temp Source Oral Pulse Oximetry (%) 96 Oxygen Delivery Method Room Air Intake Visit Reasons: EP stung by yellow jacket/allergy Intake Note: pt is here for sting but yellow jacket Patient Tobacco Use Status: Never used Tobacco Allergies bee venom protein (honey bee) Allergy (Intermediate, Verified 10/22/23 08:44) Facial Swelling adhesive tape Allergy (Unknown, Verified 10/22/23 08:44) rash aspirin Allergy (Unknown, Verified 10/22/23 08:44) bleeding cortisone Allergy (Unknown, Verified 10/22/23 08:44) stroke like symptoms Iodinated Contrast Media Allergy (Unknown, Verified 10/22/23 08:44) stroke like symptoms latex Allergy (Unknown, Verified 10/22/23 08:44) rash morphine Allergy (Unknown, Verified 10/22/23 08:44) severe vomiting pravastatin [Pravachol] Allergy (Unknown, Verified 10/22/23 08:44) muscle pain and shakiness atorvastatin [Lipitor] Adverse Reaction (Unknown, Verified 10/22/23 08:44) muscle weakness Do you need a note to return to daycare/school/sports/work: No HPI HPI Comments History of Present Illness Details Patient is a 72-year-old female complaining of a sting by a yellow jacket 2 days ago. She states she however she did not use her EpiPen as it was by a couple of years. Instead she has been taking Benadryl and using cortisone cream. She states the area of the bite is becoming more and more red and hardened and warm and painful and now is turning itchy. She states she never had any feelings of her throat closing up or tingling in the back of her throat. She denies any fevers as well. 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[facility] Medical History (Updated 10/22/23 @ 09:05 by Carolina Garcia PA-C) GERD (gastroesophageal reflux disease) Annual physical exam Right wrist joint infection KODY (obstructive sleep apnea) Asthma Carpal tunnel syndrome Hyperlipidemia Surgical History History of kidney stones History of colonoscopy History of cataract surgery History of appendectomy History of shoulder surgery Family History Mother Colon cancer HTN (hypertension) Sister COPD (chronic obstructive pulmonary disease) Father Diabetes mellitus HTN (hypertension) Myocardial infarction Social History Housing: House Alcohol intake: current Alcohol intake frequency: does not drink Patient Tobacco Use Status: Never used Tobacco e-Cigarette/Vaping Use: Never Used service: No Current occupational status: retired Cognitive needs: No Hearing needs: No Vision needs: Yes Review of Systems Const All systems reviewed & are unremarkable except as noted in HPI and below Physical Exam Vital Signs: Last Vital Signs Temp 98.2 F 10/22/23 08:44 Pulse 78 10/22/23 08:44 BP 120/80 10/22/23 08:44 Pulse Ox 96 10/22/23 08:44 Oxygen Delivery Method Room Air 10/22/23 08:44 Const General: cooperative, healthy appearing, comfortable and no acute distress Orientation/consciousness: patient oriented x3 Limitations: no limitations HEENT Head: Yes normal to inspection Eyes General: appearance normal, both eyes and all related structures Resp Effort & Inspection: normal respiratory effort and able to speak in complete sentences Skin Other: Left anterior thigh, 4 cm x 5 cm area of induration and erythema and warmth with central pinpoint lesion Neuro General: patient oriented x3 Assessment & Plan Assessment & Plan (1) Local reaction to bee sting: Code(s): T63.441A - Toxic effect of venom of bees, accidental (unintentional), initial encounter Qualifiers: Encounter type: initial encounter Injury intent: accidental or unintentional Qualified Code(s): T63.441A - Toxic effect of venom of bees, accidental (unintentional), initial encounter Plan: Advised that we are only 48 hours in from the bee sting and the localized reaction should start improving after 72 hours. Advised I would send an antibiotic but recommended she wait until tomorrow to see if it improves and if it does, she does not need the antibiotic because this could just be a localized reaction. Patient understands and agrees with plan. Also stated that I would send an EpiPen as hers is . Plan See above Medications: New epinephrine 0.3 mg (0.3 mL) IM Q4H PRN 2 ea 0RF anaphylaxis cefuroxime axetil 500 mg PO Q12H 10 tabs 0RF Coding Level of Care Code Est Pt Level 3 (54037) Diagnoses Local reaction to bee sting, accidental or unintentional, initial encounter T63.441A Encounter type: initial encounter Injury intent: accidental or unintentional
[2023-10-22 08:44] VITALS: BP 120/80; PULSE 78; TEMP 36.8; O2SAT 96
== END 2023-10-22 09:37 | disposition home or self-care (01) ==
PROVIDERS: PCP Internal Medicine; Visit Provider Physician Assistant
DX: T63.441A Toxic effect of venom of bees, accidental (unintentional), initial encounter (principal)
CPT/HCPCS: 99213

== ENCOUNTER 2024-01-26 07:43 | Outpatient (REF) | payer MEDICARE, SELFPAY ==
[2024-01-26 10:00] LABS: MANUAL DIFF FLAG NO
[2024-01-26 10:08] LABS: Basophils Percent Auto 0.5 % (0-2); Eosinophils Absolute Auto 0.1 X10*3/uL (0.0-0.4); Hematocrit 40.5 % (37.0-47.0); Hemoglobin 13.1 g/dl (12.0-16.0); Imm Gran Abs Auto 0.02 X10*3/uL (0.00-0.03); Imm Gran Pct Auto 0.3 % (0.0-0.4); Lymphocytes Absolute Auto 2.1 X10*3/uL (1.2-4.9); Lymphocytes Percent Auto 34.7 % (20-40); Mean Corpuscular HGB Conc 32.3 g/dl (31.0-35.0); Mean Corpuscular Hemoglobin 26.8 pg (27.0-33.0); Mean Platelet Volume 9.7 fL (9.4-12.3); Monocytes Absolute Auto 0.5 X10*3/uL (0.1-1.2); Neutrophils Absolute Auto 3.2 x10*3/uL (2.0-8.3); Neutrophils Percent Auto 53.5 % (45-73); Platelet Count 235 X10*3/uL (160-400); Red Blood Count 4.88 X10*6/uL (4.20-5.50); Red Cell Distribution Width 14.8 % (11.0-16.0)
[2024-01-26 10:39] LABS: Alanine Aminotransferase 29 U/L (0-31); Albumin Level 4.1 g/dL (3.5-5.0); Alkaline Phosphatase 66 U/L (39-117); Anion Gap 8 (12-20); Aspartate Amino Transferase 29 U/L (5-31); Bilirubin Total 1.1 mg/dL (0.0-1.0); Blood Urea Nitrogen 22 mg/dL (9-16); Calcium 9.3 mg/dL (8.4-10.2); Carbon Dioxide 30 mmol/L (22-29); Chloride 108 mmol/L (96-108); Cholesterol 175 mg/dL (<200); Estimated Glomerular Filt Rate > 60; Glucose Fasting 98 mg/dL (60-99); HDL Cholesterol 43 mg/dL (>40); LDL Cholesterol Calculated 110 mg/dL (<100); Potassium 4.1 mmol/L (3.3-5.1); Sodium 142 mmol/L (135-145); Total Protein 6.6 g/dL (6.5-8.0); Triglycerides 111 mg/dL (<150)
[2024-01-26 10:42] LABS: TSH reflex Free T4 1.43 uIU/mL (0.32-4.0); Vitamin D 25-OH Total 85.2 ng/mL (>30)
== END 2024-01-26 07:44 | disposition home or self-care (01) ==
LOC: HO.HMGCLDS 07:43
PROVIDERS: PCP Internal Medicine; Visit Provider Internal Medicine
DX: Z00.00 Encounter for general adult medical examination without abnormal findings (principal); E55.9 Vitamin D deficiency, unspecified; E78.5 Hyperlipidemia, unspecified; K58.9 Irritable bowel syndrome, unspecified
CPT/HCPCS: 36415; 80053; 80061; 82306; 84443; 85025

== ENCOUNTER 2024-02-19 07:40 | Outpatient (REF) | payer MEDICARE, SELFPAY ==
--- NOTE | ~2024-02-19 | XR_ITS ---
EXAMINATION: XR THORACIC SPINE CLINICAL INFORMATION: Dorsalgia, unspecified. COMPARISON: None available. TECHNIQUE: 2 views of the thoracic spine were obtained. FINDINGS: Moderate multilevel degenerative changes in the thoracic spine. Diffuse demineralization. XR/XR thoracic spine 2V IMPRESSION: Moderate multilevel degenerative changes in the thoracic spine. Diffuse demineralization. Electronically signed by: Winter Benavides MD 03/10/2024 02:33 PM EST
== END 2024-02-19 07:41 | disposition home or self-care (01) ==
LOC: HO.HMGCX 07:40
PROVIDERS: PCP Internal Medicine; Visit Provider Internal Medicine
DX: M54.6 Pain in thoracic spine (principal); M81.0 Age-related osteoporosis without current pathological fracture; E78.5 Hyperlipidemia, unspecified; M00.9 Pyogenic arthritis, unspecified; K58.9 Irritable bowel syndrome, unspecified; Z79.83 Long term (current) use of bisphosphonates
CPT/HCPCS: 72070; 96127; 99212

== ENCOUNTER 2024-02-19 07:40 | Outpatient (AMB) | payer MEDICARE, SELFPAY ==
[2024-02-19 07:49] VITALS: BP 120/60; PULSE 77; O2SAT 97; BMI 24.6
--- NOTE | 2024-02-19 07:49 | A.OFFPC_ITS ---
Vital Signs 02/19/24 07:49 Height 5 ft 1 in Weight 130 lb BMI 24.6 BP 120/60 Blood Pressure Location Rt brachial Position Sitting Pulse 77 Pulse Source Pulse Oximeter Pulse Oximetry (%) 97 Oxygen Delivery Method Room Air Intake Visit Reasons: 3 month follow up Allergies bee venom protein (honey bee) Allergy (Intermediate, Verified 02/19/24 07:51) Facial Swelling adhesive tape Allergy (Unknown, Verified 02/19/24 07:51) rash aspirin Allergy (Unknown, Verified 02/19/24 07:51) bleeding cortisone Allergy (Unknown, Verified 02/19/24 07:51) stroke like symptoms Iodinated Contrast Media Allergy (Unknown, Verified 02/19/24 07:51) stroke like symptoms latex Allergy (Unknown, Verified 02/19/24 07:51) rash morphine Allergy (Unknown, Verified 02/19/24 07:51) severe vomiting pravastatin [Pravachol] Allergy (Unknown, Verified 02/19/24 07:51) muscle pain and shakiness atorvastatin [Lipitor] Adverse Reaction (Unknown, Verified 02/19/24 07:51) muscle weakness Medication List - Last Reconciled 02/19/24 by Gwen Salomon MD albuterol sulfate 90 mcg/actuation 2 puffs inhalation Q4-6H PRN alendronate (Fosamax) 70 mg PO QWEEK betamethasone dipropionate 0.05% appl topical BID cholecalciferol (vitamin D3) 125 mcg PO DAILY coQ10 (ubiquinol) (Qunol Alberto CoQ10) 100 mg PO BID CPAP (CPAP Machine/Device) 5 cm of H2O pressure with large WISP nasal mask CPAP (CPAP Machine/Device) wear CPAP at bedtime; ranging from 6cm to 20cm H2O epinephrine 0.3 mg (0.3 mL) IM Q4H PRN ofsxx-ef-7-oaf-wah-hopuqoq-ast 1,000-230-60 mg (MegaRed Nash-3 Krill Oil) 1 cap PO BEDTIME pyefme-zuukvzpj-wrvqqty 16,800-56,800- 98,400 unit (Pancreaze) 1 cap PO BID lovastatin 40 mg PO DAILY omeprazole 40 mg PO QAM Tobacco use date assessed: 02/19/24 Fall risk assessment: No Falls in past year Last assessed Fall Risk: 02/19/24 Dental Screening Dental Screen Date: 02/19/24 Did you have a dental visit in the last 12 months?: Yes Did you have a dental problem in the last 6 months where you did not have access to dental care?: No Was dental information given to patient?: Patient has dentist HPI 3 month follow up HPI Details Pt c/o midback pain pulling sensation L>R for 2 months on and off worse when twisting upper body, better after stretching, pt f/u with chiropractor. Hyperlipid stable on statin. DEXA showed improvement in bone density with a T- score of-2.2 after 2 years of Fosamax. Patient complains of persistent chronic diarrhea despite negative GI workup, exacerbated by eating dairy products or high fat content meals. [facility] Medical History GERD (gastroesophageal reflux disease) Annual physical exam Right wrist joint infection KODY (obstructive sleep apnea) Asthma Carpal tunnel syndrome Hyperlipidemia Surgical History History of kidney stones History of colonoscopy History of cataract surgery History of appendectomy History of shoulder surgery Family History Mother Colon cancer HTN (hypertension) Sister COPD (chronic obstructive pulmonary disease) Father Diabetes mellitus HTN (hypertension) Myocardial infarction Social History Housing: House Alcohol intake: current Alcohol intake frequency: does not drink Patient Tobacco Use Status: Never used Tobacco e-Cigarette/Vaping Use: Never Used service: No Current occupational status: retired Cognitive needs: No Hearing needs: No Vision needs: Yes Questionnaire PHQ-9 Over the last 2 weeks, how often have you been bothered by any of the following problems? 1. Little interest or pleasure in doing things: not at all 2. Feeling down, depressed, or hopeless: not at all 3. Trouble falling or staying asleep, or sleeping too much: not at all 4. Feeling tired or having little energy: not at all 5. Poor appetite or overeating: not at all 6. Feeling bad about yourself - or that you are a failure or have let yourself or your family down: not at all 7. Trouble concentrating on things, such as reading the newspaper or watching television: not at all 8. Moving or speaking so slowly that other people could have noticed. Or the opposite - being so fidgety or restless that you have been moving around a lot more than usual: not at all 9. Thoughts that you would be better off or of hurting yourself in some way: not at all Total score: 0 Depression Screening Interpretation: Negative Depression Screening Done: Yes 38925 - PHQ-9 Billing: Yes Source: Developed by Drs. Dylan Farooq, Trista Corbin, Power Pena and colleagues, with an educational sky from [employer]. Thrive Questionnaire Date Thrive assessed: 02/12/24 I am a: Patient What is your living situation today?: I have a steady place to live Within the past 12 months, did the food you bought not last and you didn't have the money to get more?: Never true Within the past 12 months, did you worry whether your food would run out before you got money to buy more?: Never true Do you have trouble paying for medicines?: No Do you have trouble getting transportation to medical appointments?: No Do you have trouble paying your heating and electricity bill?: No Do you have trouble taking care of your child, family member or friend?: No Do you have trouble with day-to-day activities such as bathing, preparing meals, shopping, managing finances, etc.?: No Are you currently unemployed and looking for a job?: No Are you interested in more education?: No Please select the resources that you would like help with: None Currently or been in a relationship where the following occur: No concerns reported THRIVE Score: 0 AUDIT C Alcohol Use Questionnaire (AUDIT-C) 1. How often do you have a drink containing alcohol?: Never Total Score: 0 VERONICA-7 AMB Questionnaire VERONICA-7 Date VERONICA - 7 assessed: 02/14/23 Feeling nervous, anxious, or on edge: 0 = Not at all Not being able to stop or control worryin = Not at all Worrying too much about different things: 0 = Not at all Trouble relaxin = Not at all Being so restless that it is hard to sit still: 0 = Not at all Becoming easily annoyed or irritable: 0 = Not at all Feeling afraid as if something awful might happen: 0 = Not at all Total VERONICA-7 score (0-4 normal; 5-9 mild; 10-14 moderate; 15-21 severe): 0 Source: Developed by Drs. Dylan Farooq, Trista Corbin, Power Pena and colleagues, with an educational sky from [employer]. Review of Systems Const All systems reviewed & are unremarkable except as noted in HPI and below Eyes Reports no additional complaints ENT Reports no additional complaints Card Reports no additional complaints Resp Reports no additional complaints GI Reports no additional complaints Reports no additional complaints Physical exam (Primary Care) Vital Signs: Last Vital Signs Pulse 77 02/19/24 07:49 BP 120/60 02/19/24 07:49 Pulse Ox 97 02/19/24 07:49 Oxygen Delivery Method Room Air 02/19/24 07:49 BMI result Body Mass Index 24.6 Tobacco/Smoking Status: Tobacco use Status Tobacco use date assessed 02/19/24 02/19/24 07:54 Patient Tobacco Use Status Never used Tobacco 02/19/24 07:54 e-Cigarette/Vaping Use Never Used 02/19/24 07:54 PHQ-9: PHQ-9 Score PHQ-9: Total score 0 02/19/24 07:54 Depression Screening Interpretation: Negative Thrive Assessment: Date of Thrive Assessment Date Thrive assessed 02/12/24 02/19/24 07:54 Currently or been in a relationship where the following occur: No concerns reported Const General: no acute distress HENMT Head: Yes normal to inspection Ears: hearing grossly normal bilaterally Face and sinus: Yes normal facial exam Mouth: Normal oral and palatal mucosa present Eyes General: appearance normal, both eyes and all related structures Neck Neck: Yes no lymphadenopathy and Yes supple Resp Effort & Inspection: normal respiratory effort Auscultation: clear to auscultation bilaterally Cardio Rhythm: regular rhythm Heart sounds: S1 normal heart sound present and S2 normal heart sound present GI Inspection: Yes normal to inspection Palpation (GI): Soft to palpation Percussion: Yes normal to percussion Auscultation: normal bowel sounds Back/Spine/Pelvis Other: There is no spinal tenderness there is a paraspinal reproducible tenderness under the right scapula Coding Level of Care Code Est Pt Level 4 (78835) Diagnoses Back pain M54.9 Age related osteoporosis M81.0 Hyperlipidemia E78.5 Right wrist joint infection M00.9 IBS (irritable bowel syndrome) K58.9 Additional Codes PHQ-9 - 30670 - PHQ-9 Billing: Yes ([id number]) Assessment & Plan Assessment & Plan (1) Back pain: Code(s): M54.9 - Dorsalgia, unspecified Category: Medical Plan: Check x-ray on thoracic spine follow-up with chiropractor and continue stretching exercise (2) Age related osteoporosis: Comment: DEXA 11/19 T score -2.8, started Fosamax, 01/2024 -2.2 improvement, cont Fosamax for 2 more years Code(s): M81.0 - Age-related osteoporosis without current pathological fracture Category: Medical Plan: Continue Fosamax and vitamin-D for 2 more years and repeat DEXA (3) Hyperlipidemia: Code(s): E78.5 - Hyperlipidemia, unspecified Category: Medical Plan: cont statin (4) Right wrist joint infection: Comment: s/p R MCP joint surgery 01/2020 Dr Richy Figueroa [facility], erosion scaphoid trapezoid bones , complicated with infection 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 Code(s): M00.9 - Pyogenic arthritis, unspecified Category: Medical Plan: Follow-up with hand surgeon (5) IBS (irritable bowel syndrome): Comment: COLONOSCOPY 09/2020, [facility], f/u with [facility] , recheck colonoscopy 2023 Code(s): K58.9 - Irritable bowel syndrome, unspecified Category: Medical Plan: Add Pancreaze and continue lactose-free low-fat diet, follow-up with GI Orders: Orders XR thoracic spine 2V Today M54.9 - Dorsalgia, unspecified Medications: New lsgdyc-hkrdcbvt-dszdiyk 16,800-56,800- 98,400 unit (Pancreaze) administer with meals and/or snacks 1 cap PO BID 60 caps 5RF Refilled alendronate (Fosamax) 70 mg PO QWEEK 12 tabs 3RF
== END 2024-02-19 08:37 | disposition home or self-care (01) ==
PROVIDERS: PCP Internal Medicine; Visit Provider Internal Medicine
DX: M54.9 Dorsalgia, unspecified (principal); M81.0 Age-related osteoporosis without current pathological fracture; E78.5 Hyperlipidemia, unspecified; M00.9 Pyogenic arthritis, unspecified; K58.9 Irritable bowel syndrome, unspecified

== ENCOUNTER 2024-06-04 08:26 | Outpatient (AMB) | payer MEDICARE, SELFPAY ==
--- NOTE | 2024-06-04 08:31 | AM.OFFVISMDC ---
Intake Vital Signs 06/04/24 08:32 Height 5 ft 1 in Weight 136 lb BMI 25.7 BP 118/66 Blood Pressure Location Lt brachial Position Sitting Respiration 18 Pulse 71 Pulse Source Pulse Oximeter Temp 98.1 F Temp Source Oral Pulse Oximetry (%) 98 Oxygen Delivery Method Room Air Intake Visit Reasons: V G0439 Allergies bee venom protein (honey bee) Allergy (Intermediate, Verified 06/04/24 08:35) Facial Swelling adhesive tape Allergy (Unknown, Verified 06/04/24 08:35) rash aspirin Allergy (Unknown, Verified 06/04/24 08:35) bleeding cortisone Allergy (Unknown, Verified 06/04/24 08:35) stroke like symptoms Iodinated Contrast Media Allergy (Unknown, Verified 06/04/24 08:35) stroke like symptoms latex Allergy (Unknown, Verified 06/04/24 08:35) rash morphine Allergy (Unknown, Verified 06/04/24 08:35) severe vomiting pravastatin [Pravachol] Allergy (Unknown, Verified 06/04/24 08:35) muscle pain and shakiness atorvastatin [Lipitor] Adverse Reaction (Unknown, Verified 06/04/24 08:35) muscle weakness Medication List - Last Reconciled 06/04/24 by Gwen Salomon MD albuterol sulfate 90 mcg/actuation 2 puffs inhalation Q4-6H PRN alendronate (Fosamax) 70 mg PO QWEEK betamethasone dipropionate 0.05% appl topical BID cholecalciferol (vitamin D3) 125 mcg PO DAILY coQ10 (ubiquinol) (Qunol Alberto CoQ10) 100 mg PO BID CPAP (CPAP Machine/Device) 5 cm of H2O pressure with large WISP nasal mask CPAP (CPAP Machine/Device) wear CPAP at bedtime; ranging from 6cm to 20cm H2O epinephrine 0.3 mg (0.3 mL) IM Q4H PRN lgnoj-ma-0-xlm-vue-podkzpz-ast 1,000-230-60 mg (MegaRed [place]-3 Krill Oil) 1 cap PO BEDTIME pvukym-twrxghmu-lmpccsl 12,000-38,000 -60,000 unit (Creon) 1 cap PO BID lovastatin 40 mg PO DAILY omeprazole 40 mg PO QAM HPI SWV G0439 HPI Details She complains of sensation of decreased hearing and fullness in the right ear on and off lasting for a few days at the time. She also reports some tinnitus on the right. Initiated the conversation about Advanced Directives. Advanced Directives help? patients prepare for current and future decisions about their medical treatment? and place of care. Discussed with patient that it is a process where a patients? current condition and prognosis are reviewed, their wishes for information? regarding their illness are elicited, and likely medical dilemmas are presented? and options discussed. The form can be amended as needed, reviewed yearly and? make changes as needed IPPE/AWV ? year old presents? for her ? Annual? Wellness Visit, initial visit.? Medical / Social History Reviewed? Past Medical History ?Yes? . ? [place]? of Care / Care Team list updated ?Yes . ? Surgical/Hospitalization? History ?Yes . ? Current Medications? (including OTC and supplements) ?Yes . ? Family History ?Yes? . ? Tobacco? Control form ?Yes . ? AUDIT-C (Alcohol use) form? ?Yes . ? Illicit drug use in Social? History ?Yes . ? Current diagnosis of? depression? ?No ? Appropriate PHQ2/PHQ9? completed ?Yes . ? Data entered by ?Medical? R[facility] Angi[facility] and reviewed by provider ? Fall Risk ? Fall? History? Have you had any falls with? injury in the past year? ?No . ? Have you had two or more? falls in the past year? ?No . ? Fall Risk Assessment: ?No? falls in the past year . ? HRA filled out by? the patient, reviewed by Provider and scanned. ? IPPE/AWV ? Balance? [place]? ?Yes . ? Tandem? walk ?Yes . ? Walk and? Turn ?Yes . ? Rise from? sit to stand ?Yes . ?Vision? Corrective? lens ?Yes ? Vision? screen ? Up-to-date, has an appointment [] for vision? screening and glaucoma screening ?Hearing? Whisper? test ?pass .? Initiated the conversation about Advanced Directives. Advanced Directives help? patients prepare for current and future decisions about their medical treatment? and place of care. Discussed with patient that it is a process where a patients? current condition and prognosis are reviewed, their wishes for information? regarding their illness are elicited, and likely medical dilemmas are presented? and options discussed. The form can be amended as needed, reviewed yearly and? make changes as needed Written? Plan?Completed. See Patient? Documents. [facility], [facility] Medical History (Updated 06/04/24 @ 09:39 by Gwen Salomon MD) GERD (gastroesophageal reflux disease) Annual physical exam Right wrist joint infection KODY (obstructive sleep apnea) Asthma Carpal tunnel syndrome Hyperlipidemia Surgical History History of kidney stones History of colonoscopy History of cataract surgery History of appendectomy History of shoulder surgery Family History Mother Colon cancer HTN (hypertension) Sister COPD (chronic obstructive pulmonary disease) Father Diabetes mellitus HTN (hypertension) Myocardial infarction Social History Housing: House Alcohol intake: current Alcohol intake frequency: does not drink Patient Tobacco Use Status: Never used Tobacco e-Cigarette/Vaping Use: Never Used service: No Current occupational status: retired Cognitive needs: No Hearing needs: No Vision needs: Yes Questionnaire Medicare Wellness Checkup [age] What gender do you identify with?: female During the past 4 weeks, how much have you been bothered by emotional problems such as feeling anxious, depressed, irritable, sad or downhearted, and blue?: not at all During the past 4 weeks, has your physical & emotional health limited your social activities with family, friends, neighbors, or groups?: not at all During the past 4 weeks, how much bodily pain have you generally had?: mild pain During the past 4 weeks, was someone available to help you if you needed & wanted help?: yes, as much as I wanted During the past 4 weeks, what was the hardest physical activity you could do for at least 2 minutes?: moderate Can you get to places out of walking distance without help? (For eg., can you travel alone on buses, taxis or drive your car?): Yes Can you go shopping for groceries or clothes without someone's help?: Yes Can you prepare your own meals?: Yes Can you do your housework without help?: Yes Because of any health problems, do you need the help of another person with your personal care needs such as eating, bathing, dressing or getting around the house?: No Can you handle your own money without help?: Yes During the past 4 weeks, how would you rate your health in general?: very good During the past 4 weeks how have things been going for you?: pretty well Are you having difficulties driving your car?: no Do you always fasten your seat belt when you are in a car?: yes, usually During past 4 weeks, have you been bothered by the following: never: Falling or dizzy when standing up, Sexual problems?, Trouble eating well?, Teeth or denture problems?, Problems using the telephone? and Tiredness or fatigue? Have you fallen 2 or more times in the past year?: No Are you afraid of falling?: No Are you a smoker?: no During the past 4 weeks, how many drinks of wine, beer, or other alcoholic beverages did you have?: no alcohol at all Do you exercise for about 20 minutes 3 or more times a week?: yes, most of the time Have you been given information to help with the following?: yes: Hazards in your house that might hurt you? and yes: Keeping track of your medications? How often do you have trouble taking medicines the way you have been told to take them?: I always take medicine as prescribed How confident are you that you can control & manage most of your health problems?: very confident What is your race?: White Mini Mental State Exam (MMSE) Orientation What is the (year) (season) (date) (day) (month)?: year, season, date, day and month Where are we (state) (county) (town or city) (hospital) (floor)?: state, county, town or city, hospital/clinic and floor Registration Name of 3 unrelated objects clearly and slowly, then ask patient to repeat all 3 of them. (1st repeat determines score. Make sure they can repeat all three): object 1, object 2 and object 3 Attention & Calculation (CHOOSE ONE) Spell WORLD backwards (DLROW): 5 letters Recall Ask patient to repeat the 3 items from question #3.: object 1, object 2 and object 3 Language Show patient a wristwatch & ask what it is. Repeat for pencil.: watch and pencil Ask the patient to repeat the phrase 'No ifs, ands, or buts' after you.: correct Ask the patient to 'take a piece of paper with their right hand' 'fold paper in half' 'place paper on floor': take paper in right hand, fold paper in half and place paper on floor Print the sentence 'CLOSE YOUR EYES' on a piece. If patient actually closes eyes then score.: followed written direction Give patient a blank piece of paper & ask to write a sentence. Score if it contains a noun & verb.: sentence contains subject and verb Score Score: 29 Activity of Daily Living Bathing - sponge bath, tub bath or shower: receives no assistance (gets in/out by self, if usual bathing means Dressing - getting clothes from closets & drawers, including inner/outer garments & fasteners.: gets clothes & gets completely dressed without help Toileting - going to the 'toilet room' for urine/bowel elimination & cleaning self/arranging clothes: goes to toilet room, cleans self, arranges clothes without help Transfer: moves in & out of bed and chair without help (may use support object) Continence: controls urination/bowel movements completely by self Feeding: feeds self without help Total Score: 0 Information obtained from: patient Using telephone: independent Traveling: independent Shopping: independent Preparing meals: independent Housework: independent Taking medicine: independent Managing money: independent PHQ-9 Over the last 2 weeks, how often have you been bothered by any of the following problems? 1. Little interest or pleasure in doing things: not at all 2. Feeling down, depressed, or hopeless: not at all 3. Trouble falling or staying asleep, or sleeping too much: not at all 4. Feeling tired or having little energy: not at all 5. Poor appetite or overeating: not at all 6. Feeling bad about yourself - or that you are a failure or have let yourself or your family down: not at all 7. Trouble concentrating on things, such as reading the newspaper or watching television: not at all 8. Moving or speaking so slowly that other people could have noticed. Or the opposite - being so fidgety or restless that you have been moving around a lot more than usual: not at all 9. Thoughts that you would be better off or of hurting yourself in some way: not at all Total score: 0 Depression Screening Interpretation: Negative Depression Screening Done: Yes 60006 - PHQ-9 Billing: Yes Source: Developed by Drs. Dylan Farooq, Trista Corbin, Power Pena and colleagues, with an educational sky from [employer]. Physical Exam Vital Signs: Last Vital Signs Temp 98.1 F 06/04/24 08:32 Pulse 71 06/04/24 08:32 Resp 18 06/04/24 08:32 BP 118/66 06/04/24 08:32 Pulse Ox 98 06/04/24 08:32 Oxygen Delivery Method Room Air 06/04/24 08:32 BMI result Body Mass Index 25.7 HEENT Head: Yes normal to inspection Ears: TM's normal bilaterally and Blev[place] (lateralizes to R ear) Face and sinus: Yes normal facial exam Mouth: Normal oral and palatal mucosa present Eyes General: appearance normal, both eyes and all related structures Neck Neck: Yes no lymphadenopathy and Yes supple Resp Effort & Inspection: normal respiratory effort Auscultation: clear to auscultation bilaterally Cardio Rhythm: regular rhythm Heart sounds: S1 normal heart sound present and S2 normal heart sound present GI Inspection: Yes normal to inspection Palpation (GI): Soft to palpation Percussion: Yes normal to percussion Auscultation: normal bowel sounds Extrem General: Yes no clubbing, cyanosis or edema Assessment & Plan Assessment & Plan (1) HTN (hypertension): Code(s): I10 - Essential (primary) hypertension Plan: Continue current medications (2) Annual physical exam: Code(s): Z00.00 - Encounter for general adult medical examination without abnormal findings Plan: Well-balanced diet regular physical activity discussed with the patient she is up-to-date with the mammogram and colonoscopy (3) Age related osteoporosis: Comment: DEXA 11/19 T score -2.8, started Fosamax, 01/2024 -2.2 improvement, cont Fosamax for 2 more years Code(s): M81.0 - Age-related osteoporosis without current pathological fracture Plan: Continue vitamin-D alendronate and weight-bearing exercises (4) Asthma: Code(s): J45.909 - Unspecified asthma, uncomplicated Plan: Mild controlled on albuterol p.r.n. (5) Nephrolithiasis: Comment: Renal ultrasound April 24 small bilateral nonobstructing renal stones, f/u PVU Code(s): N20.0 - Calculus of kidney Plan: Continue increased fluid intake and follow-up with urology (6) Hyperlipidemia: Code(s): E78.5 - Hyperlipidemia, unspecified Plan: Continue statin (7) Vitamin D deficiency: Code(s): E55.9 - Vitamin D deficiency, unspecified Plan: Continue vitamin-D (8) Tinnitus of right ear: Comment: refer for hearing test 05/2024 Code(s): H93.11 - Tinnitus, right ear Plan: Referred for hearing test Orders: Orders Comprehensive [place]. Panel Fast 6 Months E55.9 - Vitamin D deficiency, unspecified, E78.5 - Hyperlipidemia, unspecified, I10 - Essential (primary) hypertension Complete Blood Count Auto Diff 6 Months E55.9 - Vitamin D deficiency, unspecified, E78.5 - Hyperlipidemia, unspecified, I10 - Essential (primary) hypertension Lipid Panel 6 Months E55.9 - Vitamin D deficiency, unspecified, E78.5 - Hyperlipidemia, unspecified, I10 - Essential (primary) hypertension Vitamin D 25-OH Total 6 Months E55.9 - Vitamin D deficiency, unspecified Referrals Speech and Hearing Referral H93.11 - Tinnitus, right ear Medications: New meclizine 25 mg PO BID PRN 30 tabs 0RF dizziness pyridoxine (vitamin B6) (Vitamin B-6) 100 mg PO DAILY 90 tabs 3RF Quality Reporting (2019) Depression/Bipolar (159/160/161/177) PHQ-9: Total score: 0 Coding Level of Care Code Medicare Subsequent (G0439) Diagnoses HTN (hypertension) I10 Annual physical exam Z00.00 Age related osteoporosis M81.0 Asthma J45.909 Nephrolithiasis N20.0 Hyperlipidemia E78.5 Vitamin D deficiency E55.9 Tinnitus of right ear H93.11 CPT Codes Advance Care Planning - Advance Care Planning discussion: On file, no changes ([id number]) Advance Care Planning - Time spent: 1-15 minutes, on File ([id number]) Additional Codes PHQ-9 - 55235 - PHQ-9 Billing: Yes ([id number]) Advance Care Planning Advance Care Planning discussion: On file, no changes Forms completed: Health Care Proxy Time spent: 1-15 minutes, on File Did not discuss due to Cultural/Spiritual beliefs: Yes
[2024-06-04 08:32] VITALS: BP 118/66; PULSE 71; RESP 18; TEMP 36.7; O2SAT 98; BMI 25.7
== END 2024-06-04 09:18 | disposition home or self-care (01) ==
PROVIDERS: PCP Internal Medicine; Visit Provider Internal Medicine
DX: Z00.00 Encounter for general adult medical examination without abnormal findings (principal); I10 Essential (primary) hypertension; M81.0 Age-related osteoporosis without current pathological fracture; J45.909 Unspecified asthma, uncomplicated; N20.0 Calculus of kidney; E78.5 Hyperlipidemia, unspecified; E55.9 Vitamin D deficiency, unspecified; H93.11 Tinnitus, right ear

== ENCOUNTER → 2024-06-04 08:26 | Outpatient (BNVA) | payer MEDICARE, SELFPAY | PROVIDERS: PCP Internal Medicine; Visit Provider Internal Medicine | DX: Z00.00 Encounter for general adult medical examination without abnormal findings (principal); I10 Essential (primary) hypertension; M81.0 Age-related osteoporosis without current pathological fracture; J45.909 Unspecified asthma, uncomplicated; N20.0 Calculus of kidney; E78.5 Hyperlipidemia, unspecified; E55.9 Vitamin D deficiency, unspecified; H93.11 Tinnitus, right ear | CPT/HCPCS: 96127 ==

== ENCOUNTER 2024-07-28 08:01 | Outpatient (REF) | payer MEDICARE, SELFPAY | END 2024-07-28 08:02 | disposition home or self-care (01) | LOC: HO.SH 08:01 | PROVIDERS: Visit Provider Internal Medicine | DX: Z01.118 Encounter for examination of ears and hearing with other abnormal findings (principal); H90.3 Sensorineural hearing loss, bilateral | CPT/HCPCS: 92557; 92567 ==

== ENCOUNTER 2024-11-23 07:37 | Outpatient (REF) | payer MEDICARE, SELFPAY ==
--- OUTSIDE RECORDS SUMMARY | 2024-11-23 07:45 | XMS_ITS | Encounter Summary ---
Author Organization [facility] Address [address] [place] [id number] Phone Care Team Providers Care Statistical Typist Name Role Phone Gwen Salomon MD Primary Care Provider [phone] Encounter Details Date Type Department Care Team (Late st Contact Info) Description 03/27/2020 Telephone [facility] Department of Orthopaedics [address] [place] [address] Eunice Abdul [address] [place] [address]. 5th [place] [address] [email or web address] Social History Tobacco Use Types Packs/Day Years Used Date Smoking Tobacco: Never Smokeless Tobacco: Never Alcohol Use Standard Drinks/Week Comments Yes 0 (1 standard drink = 0.6 oz pur e alcohol) rarely Comments No Sex and Gender Information Value Date Recorded Sex Assigned at Female 10/18/2019 9:27 AM EDT Legal Sex Female 9:15 AM EDT Gender Identity Female 10/18/2019 9:27 AM EDT Sexual Orientation Straight 10/18/2019 9: 27 AM EDT documented as of this encounter Progress Notes * Eunice Abdul - 03/27/2020 10:45 AM EST documented in this encounter Plan of Treatment Not on file documented as of this encounter Visit Diagnoses Not on filedocumented in this encounter Care Teams Statistical Typist Relationship Specialty Start Date End Date Gwen Salomon MD [facility] [place] [address] PCP - General Internal Medicine 10/18/19 documented as of this encounter Additional Source Comments The information contained in this document represents components of the legal health record. It is not the complete legal health record.[facility]
--- OUTSIDE RECORDS SUMMARY | 2024-11-23 07:45 | XMS_ITS | Encounter Summary ---
Author Organization [facility] Address [facility] [address] [place] [phone] Phone Care Team Providers Care Phlebotomy Support Tech Name Role Phone Gwen Salomon MD Primary Care Provider [phone] Encounter Details Date Type Department Care Team (Late st Contact Info) Description 06/06/2020 Procedure Pass [facility] [address] [place] [address] Social History Tobacco Use Types Packs/Day Years [...] AM EDT documented as of this encounter Plan of Treatment Not on file documented as of this encounter Visit Diagnoses Not on filedocumented in this encounter Care Teams Phlebotomy Support Tech Relationship Specialty Start Date End Date Gwen Salomon MD [address] [place] [address] PCP - General Internal Medicine 10/18/19 documented as of this encounter Additional Source Comments The information contained in this document represents components of the legal health record. It is not the complete legal health record.[facility]
--- OUTSIDE RECORDS SUMMARY | 2024-11-23 07:45 | XMS_ITS | Encounter Summary ---
Author Organization [facility] Address [address] [place] [address] Phone Care Team Providers Care Senior Medical Technologist Name Role Phone Gwen Salomon MD Primary Care Provider [phone] Encounter Details Date Type Department Care Team (Late st Contact Info) Description 12/19/2021 Procedure Pass [facility]oscopy Admitting Dept Virtual Department [address] [place] [address] Social History Tobacco Use Types Packs/Day Years [...] on filedocumented in this encounter Care Teams Senior Medical Technologist Relationship Specialty Start Date End Date Gwen Salomon MD [address] [place] [address] PCP - General Internal Medicine 10/18/19 documented as of this encounter Additional Source Comments The information contained in this document represents components of the legal health record. It is not the complete legal health record.[facility]
--- OUTSIDE RECORDS SUMMARY | 2024-11-23 07:45 | XMS_ITS | Clinical Summary ---
Author Organization [facility] Address [address] [place] [address] Phone Care Team Providers Care Pharmaceutical Detailer Name Role Phone Gwen Salomon MD Primary Care Provider [phone] Allergies Active Allergy Reactions Criticality Noted Date Comments Aspirin Bleeding High 11/17/2019 Bee Pollen Anaphylaxis High 11/17/2019 Codeine Nausea and/or Vomiting High 11/17/2019 Hydrocortisone Other (See Comments) High 11/17/2019 Can't take injections - numbness , tingling Hydromorphone Nausea and/or Vomiting 06/12/2020 Iodinated Contrast Media Syncope High 11/17/2019 Dyes Latex Rash High 11/17/2019 Morphine Nausea and/or Vomiting High 11/17/2019 Oxycodone Nausea and/or Vomiting 06/12/2020 Wnfjmpd-Sfg-Ojd Reductase Inhibitors Myalgia Low 11/17/2019 Adhesive Erythema Multiforme 12/19/2021 Medications cholecalciferol, vitamin D3, (VITAMIN D3 ORAL) Take by mouth. Active lovastatin (MEVACOR) 40 MG tablet Take 40 mg by mouth daily. 02/07/2020 Active hydroCHLOROthiazi de (HYDRODIURIL) 25 MG tablet Take 25 mg by mouth daily. 02/07/2020 Active coenzyme Q10 100 mg capsule Take 100 mg by mouth daily. Active betamethasone dipropionate 0.05 % cream Apply topically. 12/07/2020 Active Active Problems Problem Noted Date Diagnosed Date Pain, wrist, right 06/30/2020 Bone destruction 06/30/2020 History of tuberculosis 06/30/2020 Social History Tobacco Use Types Packs/Day Years Used Date Smoking Tobacco: Never Smokeless Tobacco: Never Alcohol Use Standard Drinks/Week Comments Yes 0 (1 standard drink = 0.6 oz pur e alcohol) rarely Education Answer Date Recorded Are you interested in more education? Not on alejandra e 07/26/2022 Are you concerned about learning? Not on file 07/26/2022 No 07/26/2022 No 07/26/2022 Digital Access Answer Date Recorded No 08/24/2022 No 08/24/2022 No 08/24/2022 Reliable internet access at home? Not on file 08/24/2022 Device with a working camera? Not on file Comments No Sex and Gender Information Value Date Recorded Sex Assigned at Female 10/18/2019 9:27 AM EDT Legal Sex Female 9:15 AM EDT Gender Identity Female 10/18/2019 9:27 AM EDT Sexual Orientation Straight 10/18/2019 9: 27 AM EDT Last Filed Vital Signs Vital Sign Reading Time Taken Comments Blood Pressure 122/58 12/19/2021 12:15 PM EDT Pulse 52 12/19/2021 12:15 PM EDT Temperature 36 C (96.8 F) 12/19/2021 12:03 PM EDT Respiratory Rate 16 12/19/2021 12:15 PM EDT Oxygen Saturation 97% 12/19/2021 12:15 PM EDT Inhaled Oxygen Concentration - - Weight 59 kg (130 lb) 11/20/2021 9:59 AM EDT Height 154.9 cm (5' 1 ) 11/20/2021 9:59 AM EDT Body Mass Index 24.56 11/20/2021 9:59 AM EDT Plan of Treatment Health Maintenance Due Date Last Done Comments LIPID PANEL 1949 POTASSIUM LEVEL 1949 DEPRESSION SCREENING 1961 HEPATITIS C SCREENING 11/08/1967 MAMMOGRAM 1989 COLOGUARD 1994 COLONOSCOPY 1994 COLORECTAL CANCER SCREENING 1994 FIT TEST 1994 FOBT 1994 SIGMOIDOSCOPY 1994 VIRTUAL COLONOSCOPY 1994 ZOSTER VACCINES (1 of 2) 11/08/1999 OSTEOPOROSIS SCREENING INITIAL (ONE-TIME) 2014 PNEUMOCOCCAL VACCINES (50+ years) (2 of 2 - PCV) 04/02/2017 04/02/2016 COVID-19 VACCINE (5 - season) 2023 07/05/2021, 01/09/2021, 05/31/2020, Additional history exists RSV VACCINE (1 - 1-dose 75+ series) 2024 Adult Td,Tdap Booster 03/27/2025 03/27/2015 SMOKING STATUS SCREENING (Once After 26 Yrs) Completed 11/20/2021 HEPATITIS A VACCINES Aged Out No long er eligible based on patient's age to complete this topic HIB VACCINES Aged Out No longer eligi ble based on patient's age to complete this topic MENINGOCOCCAL VACCINES (ACWY) Aged Out No longer eligible based on patient's age to complete this topic MENINGOCOCCAL VACCINES (B) Aged Out N o longer eligible based on patient's age to complete this topic Medical Devices Implanted Type Area Speech Coach Device Identifier Shelf Expiration Date Model / Serial / Lot Screw Bone 8x3mm [employer] Biocomposite - [id number] Implanted:Qty: 1 on 02/17/2020 by Dex Lockhart MD at [facility] STANDARD Right: Wrist [employer] 06/28/2024 AR-1530PS / / [id number] Cement Bone 20g Simplex P Tobramycin Antibiotic Impregnated Full Dose Bx/10ea - [id number] Implanted:Qty: 1 on 06/15/2020 by Dex Lockhart MD at [facility] STANDARD Right: Wrist [employer] 06/28/2021 6197-9-01 0 / / [id number] Description:Tobramycin Cemen t spacers Insurance MEDICARE PART A & B BLUE CROSS MEDEX SUPPLEMENT MEDICARE PART A & B [employer] CROSS MEDEX SUPPLEMENT MEDICARE PART A & B [employer] CROSS MEDEX SUPPLEMENT MEDICARE PART A & B [employer] MEDEX SUPPLEMENT Member Subscriber Plan / Payer (Ef fective 2014-Present) Name:Radha Gardner Relation to Subscriber:Self Name:Radha Gardner Payer ID:[id number] (NAIC) Type:[employer] Address: [place] [address] MEDICARE PART A & B [employer] MEDEX SUPPLEMENT MEDICARE PART A & B [employer] MEDEX SUPPLEMENT MEDICARE PART A & B [facility] MEDEX SUPPLEMENT MEDICARE PART A & B [employer] CROSS MEDEX SUPPLEMENT MEDICARE PART A & B [employer] CROSS MEDEX SUPPLEMENT Care Teams Pharmaceutical Detailer Relationship Specialty Start Date End Date Gwen Salomon MD [address] [facility] [place] [address] PCP - General Internal Medicine 10/18/19 Additional Source Comments The information contained in this document represents components of the legal health record. It is not the complete legal health record.[facility]
--- OUTSIDE RECORDS SUMMARY | 2024-11-23 07:45 | XMS_ITS | Encounter Summary ---
Author Organization [facility] Address [address] [facility] [address] [place] [address] Phone Care Team Providers Care Spoon Maker Name Role Phone Gwen Salomon MD Primary Care Provider [phone] Encounter Details Date Type Department Care Team (Late st Contact Info) Description 06/15/2020 Procedure Pass BWF Periop 1st floor [address] [place] [address] Social History Tobacco Use Types Packs/Day Years [...] on filedocumented in this encounter Care Teams Spoon Maker Relationship Specialty Start Date End Date Gwen Salomon MD [address] [facility] [place] [address] PCP - General Internal Medicine 10/18/19 documented as of this encounter Additional Source Comments The information contained in this document represents components of the legal health record. It is not the complete legal health record.[facility]
--- OUTSIDE RECORDS SUMMARY | 2024-11-23 07:45 | XMS_ITS | Encounter Summary ---
Author Organization [facility] Address [address] [facility] [address] [place] [address] Phone Care Team Providers Care Bagel Maker Name Role Phone Gwen Salomon MD Primary Care Provider [phone] Encounter Details Date Type Department Care Team (Late st Contact Info) Description 02/17/2020 Procedure Pass BWF Periop 1st floor [address] [place] [address] Social History Tobacco Use Types Packs/Day Years [...] on filedocumented in this encounter Care Teams Bagel Maker Relationship Specialty Start Date End Date Gwen Salomon MD [address] [facility] [place] [address] PCP - General Internal Medicine 10/18/19 documented as of this encounter Additional Source Comments The information contained in this document represents components of the legal health record. It is not the complete legal health record.[facility]
[2024-11-23 10:08] LABS: MANUAL DIFF FLAG NO
[2024-11-23 10:12] LABS: Hematocrit 40.8 % (37.0-47.0); Hemoglobin 13.1 g/dl (12.0-16.0); Imm Gran Abs Auto 0.03 X10*3/uL (0.00-0.03); Imm Gran Pct Auto 0.5 % (0.0-0.4); Lymphocytes Absolute Auto 2.0 X10*3/uL (1.2-4.9); Mean Corpuscular HGB Conc 32.1 g/dl (31.0-35.0); Mean Corpuscular Hemoglobin 26.6 pg (27.0-33.0); Mean Corpuscular Volume 82.9 fL (80.0-98.0); NRBC Abs Auto 0.000 X10*3/uL (0.0-0.012); NRBC Pct Auto 0.0 /100WBC (0.0-0.2); Platelet Count 249 X10*3/uL (160-400); Red Blood Count 4.92 X10*6/uL (4.20-5.50); White Blood Count 6.1 X10*3/uL (4.8-10.8)
[2024-11-23 10:37] LABS: Alanine Aminotransferase 32 U/L (0-31); Albumin Level 4.4 g/dL (3.5-5.0); Alkaline Phosphatase 60 U/L (39-117); Anion Gap 11 (12-20); Aspartate Amino Transferase 30 U/L (5-31); Blood Urea Nitrogen 17 mg/dL (9-16); Calcium 9.4 mg/dL (8.4-10.2); Carbon Dioxide 27 mmol/L (22-29); Chloride 108 mmol/L (96-108); Cholesterol 171 mg/dL (<200); Estimated Glomerular Filt Rate > 60; HDL Cholesterol 39 mg/dL (>40); Potassium 4.2 mmol/L (3.3-5.1); Sodium 142 mmol/L (135-145); Total Protein 6.6 g/dL (6.5-8.0); Triglycerides 130 mg/dL (<150)
== END 2024-11-23 07:38 | disposition home or self-care (01) ==
LOC: HO.HMGCLDS 07:37
PROVIDERS: PCP Internal Medicine; Visit Provider Internal Medicine
DX: I10 Essential (primary) hypertension (principal); E78.5 Hyperlipidemia, unspecified; E55.9 Vitamin D deficiency, unspecified
CPT/HCPCS: 36415; 80053; 80061; 82306; 85025

== ENCOUNTER 2024-12-02 08:46 | Outpatient (AMB) | payer MEDICARE, SELFPAY ==
[2024-12-02 08:56] VITALS: BP 122/70; PULSE 77; RESP 20; TEMP 36.8; O2SAT 98; BMI 24.6
--- NOTE | 2024-12-02 08:56 | A.OFFPC_ITS ---
Vital Signs 12/02/24 08:56 Height 5 ft 1 in Weight 130 lb BMI 24.6 BP 122/70 Blood Pressure Location Lt brachial Position Sitting Respiration 20 Pulse 77 Pulse Source Pulse Oximeter Temp 98.2 F Temp Source Oral Pulse Oximetry (%) 98 Oxygen Delivery Method Room Air Intake Visit Reasons: 6m follow up Intake Note: Pt is here today for a 6 months follow up visit. Pt has been having upper back pain for 2 weeks now. Pt states that she was walking a dog and she fell. Allergies bee venom protein (honey bee) Allergy (Intermediate, Verified 12/02/24 09:00) Facial Swelling adhesive tape Allergy (Unknown, Verified 12/02/24 09:00) rash aspirin Allergy (Unknown, Verified 12/02/24 09:00) bleeding cortisone Allergy (Unknown, Verified 12/02/24 09:00) stroke like symptoms Iodinated Contrast Media Allergy (Unknown, Verified 12/02/24 09:00) stroke like symptoms latex Allergy (Unknown, Verified 12/02/24 09:00) rash morphine Allergy (Unknown, Verified 12/02/24 09:00) severe vomiting pravastatin (Pravachol) Allergy (Unknown, Verified 12/02/24 09:00) muscle pain and shakiness atorvastatin (Lipitor) Adverse Reaction (Unknown, Verified 12/02/24 09:00) muscle weakness Medication List - Last Reconciled 12/02/24 by Gwen Salomon MD albuterol sulfate 90 mcg/actuation 2 puffs inhalation Q4-6H PRN alendronate (Fosamax) 70 mg PO QWEEK apple cider vinegar 1,200 mg PO betamethasone dipropionate 0.05% appl topical BID cholecalciferol (vitamin D3) 125 mcg PO DAILY coQ10 (ubiquinol) (Qunol Alberto CoQ10) 100 mg PO BID epinephrine 0.3 mg (0.3 mL) IM Q4H PRN mnlos-ny-7-pes-jns-wjqacsr-ast 1,000-230-60 mg (MegaRed [place]-3 Krill Oil) 1 cap PO BEDTIME ekbned-elfjedrl-cflfxyx 12,000-38,000 -60,000 unit (Creon) 1 cap PO BID lovastatin 40 mg PO DAILY meclizine 25 mg PO BID PRN omeprazole 40 mg PO QAM pyridoxine (vitamin B6) (Vitamin B-6) 100 mg PO DAILY Tobacco use date assessed: 12/02/24 Fall risk assessment: 1 Fall in past year Last assessed Fall Risk: 12/02/24 Dental Screening Dental Screen Date: 12/02/24 Did you have a dental visit in the last 12 months?: Yes Did you have a dental problem in the last 6 months where you did not have access to dental care?: No Was dental information given to patient?: Patient has dentist HPI 6m follow up HPI Details Pt c/o severe 10/10 mid back pain radiating to right lower chest area for 2 weeks. Patient has been to physical therapy, chiropractor and pain management. Patient reports right foot tingling sensation on and off but denies any weakness in the right lower extremity, change in bowel or bladder function. Patient denies any falls or injury but was pulled by the dog on a leash a few weeks ago. Hyperlipidemia is controlled on lovastatin [facility] Medical History (Updated 12/02/24 @ 09:24 by Gwen Salomon MD) GERD (gastroesophageal reflux disease) Annual physical exam Right wrist joint infection KODY (obstructive sleep apnea) Asthma Carpal tunnel syndrome Hyperlipidemia Surgical History (Updated 12/02/24 @ 09:05 by JINA Guadalupe) Hx of hand surgery History of kidney stones History of colonoscopy History of cataract surgery History of appendectomy History of shoulder surgery Family History Mother Colon cancer HTN (hypertension) Sister COPD (chronic obstructive pulmonary disease) Father Diabetes mellitus HTN (hypertension) Myocardial infarction Social History Housing: House Alcohol intake: current Alcohol intake frequency: does not drink Patient Tobacco Use Status: Never used Tobacco e-Cigarette/Vaping Use: Never Used service: No Current occupational status: retired Cognitive needs: No Hearing needs: No Vision needs: Yes Questionnaire Thrive Questionnaire Date Thrive assessed: 12/02/24 I am a: Patient What is your living situation today?: I have a steady place to live Within the past 12 months, did the food you bought not last and you didn't have the money to get more?: Never true Within the past 12 months, did you worry whether your food would run out before you got money to buy more?: Never true Do you have trouble paying for medicines?: No Do you have trouble getting transportation to medical appointments?: No Do you have trouble paying your heating and electricity bill?: No Do you have trouble taking care of your child, family member or friend?: No Do you have trouble with day-to-day activities such as bathing, preparing meals, shopping, managing finances, etc.?: No Are you currently unemployed and looking for a job?: No Are you interested in more education?: No Please select the resources that you would like help with: None Currently or been in a relationship where the following occur: No concerns reported THRIVE Score: 0 AUDIT C Alcohol Use Questionnaire (AUDIT-C) 1. How often do you have a drink containing alcohol?: Never Total Score: 0 VERONICA-7 AMB Questionnaire VERONICA-7 Date VERONICA - 7 assessed: 12/02/24 Feeling nervous, anxious, or on edge: 0 = Not at all Not being able to stop or control worryin = Not at all Worrying too much about different things: 0 = Not at all Trouble relaxin = Not at all Being so restless that it is hard to sit still: 0 = Not at all Becoming easily annoyed or irritable: 0 = Not at all Feeling afraid as if something awful might happen: 0 = Not at all Total VERONICA-7 score (0-4 normal; 5-9 mild; 10-14 moderate; 15-21 severe): 0 Source: Developed by Drs. Dylan Farooq, Trista Corbin, Power Pena and colleagues, with an educational sky from [employer]. VERONICA-7 Assessment Billing VERONICA-7 Assessment Tool: VERONICA-7 Assessment 51188 Review of Systems Const All systems reviewed & are unremarkable except as noted in HPI and below Eyes Reports no additional complaints Card Reports no additional complaints Resp Reports no additional complaints GI Reports no additional complaints Physical exam (Primary Care) Vital Signs: Last Vital Signs Temp 98.2 F 12/02/24 08:56 Pulse 77 12/02/24 08:56 Resp 20 12/02/24 08:56 BP 122/70 12/02/24 08:56 Pulse Ox 98 12/02/24 08:56 Oxygen Delivery Method Room Air 12/02/24 08:56 BMI result Body Mass Index 24.6 Tobacco/Smoking Status: Tobacco use Status Tobacco use date assessed 12/02/24 12/02/24 09:07 Patient Tobacco Use Status Never used Tobacco 12/02/24 09:07 e-Cigarette/Vaping Use Never Used 12/02/24 08:56 Thrive Assessment: Date of Thrive Assessment Date Thrive assessed 12/02/24 12/02/24 09:07 Currently or been in a relationship where the following occur: No concerns reported Const General: no acute distress HENMT Head: Yes normal to inspection Mouth: Normal oral and palatal mucosa present Neck Neck: Yes supple Chest Other: There is a reproducible tenderness in lower thoracic spinal region and right lower thoracic paraspinal region. Resp Effort & Inspection: normal respiratory effort Auscultation: clear to auscultation bilaterally Cardio Rhythm: regular rhythm Heart sounds: S1 normal heart sound present and S2 normal heart sound present GI Inspection: Yes normal to inspection Neuro General: deep tendon reflexes 2+ bilaterally Motor exam (neuro): 5/5 motor strength present throughout Coding Level of Care Code Est Pt Level 4 (40961) Diagnoses Thoracic radiculopathy M54.14 Hyperlipidemia E78.5 Additional Codes VERONICA-7 Assessment Billing - VERONICA-7 Assessment Tool: VERONICA-7 Assessment 88547 ([id number]) Assessment & Plan Assessment & Plan (1) Thoracic radiculopathy: Code(s): M54.14 - Radiculopathy, thoracic region Category: Medical Plan: Obtain MRI of thoracic spine to evaluate for disc herniation. Prednisone taper and lidocaine a prescribed. Patient will follow-up after MRI (2) Hyperlipidemia: Code(s): E78.5 - Hyperlipidemia, unspecified Category: Medical Plan: Continue statin Orders: Orders MR thoracic spine wo con Today M54.14 - Radiculopathy, thoracic region Medications: New prednisone Four tablets p.o. q.d. for 3 days then 3 tablets p.o. q.d. for 3 days then 2 tablets p.o. q.d. for 3 days then 1 tablet p.o. q.d. for 3 days 10 mg PO DAILY 30 tabs 0RF lidocaine 5% leave on most painful area for up to 12 hrs 2 patches topical DAILY 60 ea 0RF
== END 2024-12-02 10:00 | disposition home or self-care (01) ==
LOC: HO.HMCC 08:46
PROVIDERS: PCP Internal Medicine; Visit Provider Internal Medicine
DX: M54.14 Radiculopathy, thoracic region (principal); E78.5 Hyperlipidemia, unspecified

== ENCOUNTER → 2024-12-02 08:46 | Outpatient (BNVA) | payer MEDICARE, SELFPAY | PROVIDERS: PCP Internal Medicine; Visit Provider Internal Medicine | DX: M54.14 Radiculopathy, thoracic region (principal); R20.2 Paresthesia of skin; E78.5 Hyperlipidemia, unspecified | CPT/HCPCS: 96127; 99212 ==

== ENCOUNTER 2024-12-03 12:49 | Outpatient (REF) | payer MEDICARE, SELFPAY ==
--- NOTE | ~2024-12-03 | MR_ITS ---
FINDINGS: MR THORACIC SPINE WITHOUT CONTRAST CLINICAL INFORMATION: Radiculopathy, thoracic region. Recent injury, pain mid to lower back, radiating up to right shoulder. COMPARISON: No prior MRI. Plain films of the thoracic spine 02/19/2024. TECHNIQUE: Multiplanar multisequence MR imaging of the thoracic spine was performed utilizing standard sequences. Examination was performed on a 1.5 [employer] Siemens high-field unit. FINDINGS: ALIGNMENT: There is a minimal levoconvex scoliosis. There is a normal thoracic kyphosis. There is no subluxation identified. VERTEBRAL BODIES AND BONE MARROW: There is no definite fracture or focal bone marrow edema identified. There is no compression deformity. There is no abnormal infiltrating bone marrow signal. There are hemangiomas present in T2, T5, T7, T8 8, involving the posterior elements on the left, and L2. DISCS: Mild to moderate multilevel loss of height and signal most notable spanning T2-T11. PARASPINAL SOFT TISSUES: No paraspinous or paravertebral edema or abnormal fluid collection identified. The aorta is normal in caliber. There are no pleural effusions. There are simple renal cysts in the left kidney. SPINAL CORD: Normal in caliber and signal throughout. Central canal is capacious without evidence of significant narrowing or cord impingement. SPINAL LEVELS: C7-T1: No central canal or neural foraminal narrowing. T1-T2: No central canal or neural foraminal narrowing. There are mild left greater than right degenerative facet changes. T2-T3: There is minimal disc bulging. No central canal or neural foraminal narrowing. There is mild degenerative facet change bilaterally. T3-T4: Minimal disc bulge is present. There is no central canal or neural foraminal narrowing. There is mild degenerative facet changes bilaterally. T4-T5: No central canal or neural foraminal narrowing. There are mild degenerative facet changes bilaterally. T5-T6: No central canal or neural foraminal narrowing. There are mild degenerative facet changes bilaterally. T6-T7: No central canal or neural foraminal narrowing. There are mild degenerative facet changes bilaterally. T7-T8: There is shallow disc bulging. There is no central canal or neural foraminal narrowing. There are mild degenerative facet changes bilaterally. T8-T9: There is no central canal or neural foraminal narrowing. There are minimal degenerative facet changes bilaterally. T9-T10: There is a small central disc protrusion. This indents upon the ventral thecal sac but does not contact the cord. There is no central canal or neural foraminal narrowing. There are mild degenerative facet changes. T10-T11: There is no central canal or neural foraminal narrowing. Normal facets. T11-T12: There is no central canal or neural foraminal narrowing. Normal facets. T12-L1: There is no central canal or neural foraminal narrowing. Normal facets. MR/MR thoracic spine wo con IMPRESSION: 1. There are no acute fractures, foci of bone marrow edema, or compression deformities involving the thoracic spine. 2. There are mild to moderate changes of degenerative spondylosis. There is no significant central canal narrowing, cord impingement or signal abnormality. 3. There are scattered hemangiomas within the vertebral bodies. Electronically signed by: Rogelio Steve MD 12/03/2024 01:56 PM EDT
--- OUTSIDE RECORDS SUMMARY | 2024-12-03 13:01 | XMS_ITS | Encounter Summary ---
Author Organization [facility] Address [address] [facility] [address] [place] [address] Phone Care Team Providers Care Freight Car Cleaner Delta System Name Role Phone Gwen Salomon MD Primary Care Provider [phone] Encounter Details Date Type Department Care Team (Late st Contact Info) Description 02/17/2020 Procedure Pass BWF Periop 1st floor [address] [place] [address] Social History Tobacco Use Types Packs/Day Years [...] on filedocumented in this encounter Care Teams Freight Car Cleaner Delta System Relationship Specialty Start Date End Date Gwen Salomon MD [address] [facility] [place] [address] PCP - General Internal Medicine 10/18/19 documented as of this encounter Additional Source Comments The information contained in this document represents components of the legal health record. It is not the complete legal health record.[facility]
--- OUTSIDE RECORDS SUMMARY | 2024-12-03 13:01 | XMS_ITS | Encounter Summary ---
Author Organization [facility] Address [address] [place] [address] Phone Care Team Providers Care Supervisor Refractory Products Name Role Phone Gwen Salomon MD Primary Care Provider [phone] Encounter Details Date Type Department Care Team (Late st Contact Info) Description 06/15/2020 Procedure Pass BWF Periop 1st floor [address] [place] [address] Social History Tobacco Use Types Packs/Day Years [...] on filedocumented in this encounter Care Teams Supervisor Refractory Products Relationship Specialty Start Date End Date Gwen Salomon MD [address] [facility] [place] [address] PCP - General Internal Medicine 10/18/19 documented as of this encounter Additional Source Comments The information contained in this document represents components of the legal health record. It is not the complete legal health record.[facility]
--- OUTSIDE RECORDS SUMMARY | 2024-12-03 13:01 | XMS_ITS | Encounter Summary ---
Author Organization [facility] Address [address] [place] [address] Phone Care Team Providers Care Campus Manager Name Role Phone Gwen Salomon MD Primary Care Provider [phone] Encounter Details Date Type Department Care Team (Late st Contact Info) Description 06/06/2020 Procedure Pass [facility] [address] [place] [address] Social History Tobacco Use Types Packs/Day Years [...] on filedocumented in this encounter Care Teams Campus Manager Relationship Specialty Start Date End Date Gwen Salomon MD [address] [facility] [place] [address] PCP - General Internal Medicine 10/18/19 documented as of this encounter Additional Source Comments The information contained in this document represents components of the legal health record. It is not the complete legal health record.[facility]
--- OUTSIDE RECORDS SUMMARY | 2024-12-03 13:01 | XMS_ITS | Encounter Summary ---
Author Organization [facility] Address [address] [place] [address] Phone Care Team Providers Care Biscuit Maker Name Role Phone Gwen Salomon MD Primary Care Provider [phone] Encounter Details Date Type Department Care Team (Late st Contact Info) Description 03/27/2020 Telephone [facility]edics [address] [place] [address] Eunice Abdul [address] [place] [address]. [address] [place] [address] [email or web address] Social History Tobacco Use Types Packs/Day Years [...] on filedocumented in this encounter Care Teams Biscuit Maker Relationship Specialty Start Date End Date Gwen Salomon MD [facility] [place] [address] PCP - General Internal Medicine 10/18/19 documented as of this encounter Additional Source Comments The information contained in this document represents components of the legal health record. It is not the complete legal health record.[facility]
--- OUTSIDE RECORDS SUMMARY | 2024-12-03 13:01 | XMS_ITS | Encounter Summary ---
Author Organization [facility] Address [address] [place] [address] [place] [address] Phone Care Team Providers Care Producer Director Name Role Phone Gwen Salomon MD Primary Care Provider [phone] Encounter Details Date Type Department Care Team (Late st Contact Info) Description 12/19/2021 Procedure Pass [facility] Endoscopy Admitting Dept Virtual Department [address] [place] [address] Social History Tobacco Use Types Packs/Day Years [...] on filedocumented in this encounter Care Teams Producer Director Relationship Specialty Start Date End Date Gwen Salomon MD [address] [facility] [place] [address] PCP - General Internal Medicine 10/18/19 documented as of this encounter Additional Source Comments The information contained in this document represents components of the legal health record. It is not the complete legal health record.[facility]
--- OUTSIDE RECORDS SUMMARY | 2024-12-03 13:01 | XMS_ITS | Clinical Summary ---
Author Organization [facility] Address [address] [place] [address] Phone Care Team Providers Care Rn Maternal Child Name Role Phone Gwen Salomon MD Primary Care Provider [phone] Allergies Active Allergy Reactions Criticality Noted Date Comments Aspirin Bleeding High 11/17/2019 Bee Pollen Anaphylaxis High 11/17/2019 Codeine Nausea and/or Vomiting High 11/17/2019 Hydrocortisone Other (See Comments) High 11/17/2019 Can't take injections - numbness , tingling Hydromorphone Nausea and/or Vomiting 06/12/2020 Iodinated Contrast Media Syncope High 11/17/2019 Dyes Latex Rash High 11/17/2019 Morphine Nausea and/or Vomiting High 11/17/2019 Oxycodone Nausea and/or Vomiting 06/12/2020 Ugijhsd-Uqe-Wub Reductase Inhibitors Myalgia Low 11/17/2019 Adhesive Erythema [...] DEPRESSION SCREENING 1961 HEPATITIS C SCREENING 11/08/1967 COLOGUARD 1994 COLONOSCOPY 1994 COLORECTAL CANCER SCREENING 1994 FIT TEST 1994 FOBT 1994 SIGMOIDOSCOPY 1994 VIRTUAL COLONOSCOPY 1994 ZOSTER VACCINES (1 of 2) 11/08/1999 OSTEOPOROSIS SCREENING INITIAL (ONE-TIME) 2014 PNEUMOCOCCAL VACCINES (50+ years) (2 of 2 - PCV) 04/02/2017 04/02/2016 INFLUENZA VACCINE (#1) 2024 , 11/24/2019, 12/04/2018, Additional history exists RSV VACCINE (1 - 1-dose 75+ series) 2024 COVID-19 VACCINE (5 - 2024- season) 2024 07/05/2021, 01/09/2021, 05/31/2020, Additional history exists Adult Td,Tdap Booster 03/27/2025 03/27/2015 SMOKING STATUS [...] this topic Medical Devices Implanted Type Area K [employer] Professional Device Identifier Shelf Expiration Date Model / Serial / Lot Screw Bone 8x3mm [employer] - [id number] Implanted:Qty: 1 on 02/17/2020 by Dex Lockhart MD at [facility] STANDARD Right: Wrist [employer] 06/28/2024 AR-1530PS / / [id number] Cement Bone 20g Simplex P Tobramycin Antibiotic Impregnated Full Dose Bx/10ea - [id number] Implanted:Qty: 1 on 06/15/2020 by Dex Lockhart MD at [facility] STANDARD Right: Wrist [employer] 06/28/2021 6197-9-01 0 / / [id number] Description:Tobramycin Cemen t spacers Insurance MEDICARE PART A & B [employer] CROSS MEDEX SUPPLEMENT MEDICARE PART A & B [employer] MEDEX SUPPLEMENT MEDICARE PART A & B [employer] MEDEX SUPPLEMENT MEDICARE PART A & B [employer] MEDEX SUPPLEMENT MEDICARE PART A & B [employer] MEDEX SUPPLEMENT MEDICARE PART A & B [employer] MEDEX SUPPLEMENT MEDICARE PART A & B [facility] MEDEX SUPPLEMENT MEDICARE PART A & B [employer] CROSS MEDEX SUPPLEMENT MEDICARE PART A & B [employer] CROSS MEDEX SUPPLEMENT Care Teams Rn Maternal Child Relationship Specialty Start Date End Date Gwen Salomon MD [address] [facility] [place] [address] PCP - General Internal Medicine 10/18/19 Additional Source Comments The information contained in this document represents components of the legal health record. It is not the complete legal health record.[facility]
== END 2024-12-03 12:50 | disposition home or self-care (01) ==
LOC: HO.MRI 12:49
PROVIDERS: Visit Provider Internal Medicine
DX: M54.14 Radiculopathy, thoracic region (principal)
CPT/HCPCS: 72146

== ENCOUNTER → 2024-12-03 13:13 | Outpatient (BNV) | payer MEDICARE, SELFPAY | PROVIDERS: Visit Provider Radiology Diagnostic Radiology | DX: M47.814 Spondylosis without myelopathy or radiculopathy, thoracic region (principal) | CPT/HCPCS: 72146 ==

== ENCOUNTER 2024-12-14 07:58 | Outpatient (AMB) | payer MEDICARE, SELFPAY ==
[2024-12-14 08:08] VITALS: BP 122/62; PULSE 69; RESP 19; TEMP 36.9; O2SAT 98; BMI 24.6
--- NOTE | 2024-12-14 08:08 | A.OFFPC_ITS ---
Vital Signs 12/14/24 08:08 Height 5 ft 1 in Weight 130 lb BMI 24.6 BP 122/62 Blood Pressure Location Lt brachial Position Sitting Respiration 19 Pulse 69 Pulse Source Pulse Oximeter Temp 98.5 F Temp Source Oral Pulse Oximetry (%) 98 Oxygen Delivery Method Room Air Intake Visit Reasons: 2 wk follow up MRI results Allergies bee venom protein (honey bee) Allergy (Intermediate, Verified 12/14/24 08:09) Facial Swelling adhesive tape Allergy (Unknown, Verified 12/14/24 08:09) rash aspirin Allergy (Unknown, Verified 12/14/24 08:09) bleeding cortisone Allergy (Unknown, Verified 12/14/24 08:09) stroke like symptoms Iodinated Contrast Media Allergy (Unknown, Verified 12/14/24 08:09) stroke like symptoms latex Allergy (Unknown, Verified 12/14/24 08:09) rash morphine Allergy (Unknown, Verified 12/14/24 08:09) severe vomiting pravastatin (Pravachol) Allergy (Unknown, Verified 12/14/24 08:09) muscle pain and shakiness atorvastatin (Lipitor) Adverse Reaction (Unknown, Verified 12/14/24 08:09) muscle weakness Medication List - Last Reconciled 12/14/24 by Gwen Salomon MD albuterol sulfate 90 mcg/actuation 2 puffs inhalation Q4-6H PRN alendronate (Fosamax) 70 mg PO QWEEK apple cider vinegar 1,200 mg PO betamethasone dipropionate 0.05% appl topical BID cholecalciferol (vitamin D3) 125 mcg PO DAILY coQ10 (ubiquinol) (Qunol Alberto CoQ10) 100 mg PO BID epinephrine 0.3 mg (0.3 mL) IM Q4H PRN [id number]-hw-[id number]-ctq-lgm-poarqda-ast 1,000-230-60 mg (MegaRed [place]llo-3 Krill Oil) 1 cap PO BEDTIME lidocaine 5% 2 patches topical DAILY jutnvg-puonolon-ittatkw 12,000-38,000 -60,000 unit (Creon) 1 cap PO BID lovastatin 40 mg PO DAILY meclizine 25 mg PO BID PRN omeprazole 40 mg PO QAM pyridoxine (vitamin B6) (Vitamin B-6) 100 mg PO DAILY Tobacco use date assessed: 12/14/24 Fall risk assessment: 1 Fall in past year Last assessed Fall Risk: 12/14/24 Dental Screening Dental Screen Date: 12/02/24 HPI 2 wk follow up MRI results HPI Details Patient presents for the follow-up of MRI for chronic mid back pain. MRI showed degenerative changes but no significant radiculopathy or spine compression. Patient had physical therapy in the past and she is established with chiropractor and manipulations have been helpful. Hyperlipidemia is controlled on lovastatin. Patient has been taking Fosamax and vitamin-D for osteoporosis [facility] Medical History (Updated 12/14/24 @ 09:01 by Gwen Salomon MD) Thoracic radiculopathy GERD (gastroesophageal reflux disease) Annual physical exam Right wrist joint infection KODY (obstructive sleep apnea) Asthma Carpal tunnel syndrome Hyperlipidemia Surgical History Hx of hand surgery History of kidney stones History of colonoscopy History of cataract surgery History of appendectomy History of shoulder surgery Family History Mother Colon cancer HTN (hypertension) Sister COPD (chronic obstructive pulmonary disease) Father Diabetes mellitus HTN (hypertension) Myocardial infarction Social History Housing: House Alcohol intake: current Alcohol intake frequency: does not drink Patient Tobacco Use Status: Never used Tobacco e-Cigarette/Vaping Use: Never Used service: No Current occupational status: retired Cognitive needs: No Hearing needs: No Vision needs: Yes Questionnaire Thrive Questionnaire Date Thrive assessed: 11/25/24 I am a: Patient What is your living situation today?: I have a steady place to live Within the past 12 months, did the food you bought not last and you didn't have the money to get more?: Never true Within the past 12 months, did you worry whether your food would run out before you got money to buy more?: Never true Do you have trouble paying for medicines?: No Do you have trouble getting transportation to medical appointments?: No Do you have trouble paying your heating and electricity bill?: No Do you have trouble taking care of your child, family member or friend?: No Do you have trouble with day-to-day activities such as bathing, preparing meals, shopping, managing finances, etc.?: No Are you currently unemployed and looking for a job?: No Are you interested in more education?: No Please select the resources that you would like help with: None Currently or been in a relationship where the following occur: No concerns reported THRIVE Score: 0 VERONICA-7 AMB Questionnaire VERONICA-7 Date VERONICA - 7 assessed: 12/02/24 Source: Developed by Drs. Dylan Farooq, Trista Corbin, Power Pena and colleagues, with an educational sky from [employer]. Review of Systems Const All systems reviewed & are unremarkable except as noted in HPI and below ENT Reports no additional complaints Card Reports no additional complaints Resp Reports no additional complaints GI Reports no additional complaints Reports no additional complaints Physical exam (Primary Care) Vital Signs: Last Vital Signs Temp 98.5 F 12/14/24 08:08 Pulse 69 12/14/24 08:08 Resp 19 12/14/24 08:08 BP 122/62 12/14/24 08:08 Pulse Ox 98 12/14/24 08:08 Oxygen Delivery Method Room Air 12/14/24 08:08 BMI result Body Mass Index 24.6 Tobacco/Smoking Status: Tobacco use Status Tobacco use date assessed 12/14/24 12/14/24 08:13 Patient Tobacco Use Status Never used Tobacco 12/14/24 08:10 e-Cigarette/Vaping Use Never Used 12/14/24 08:10 Thrive Assessment: Date of Thrive Assessment Date Thrive assessed 11/25/24 12/14/24 08:10 Currently or been in a relationship where the following occur: No concerns reported Const General: no acute distress HENMT Head: Yes normal to inspection Neck Neck: Yes supple Resp Effort & Inspection: normal respiratory effort Auscultation: clear to auscultation bilaterally Cardio Rhythm: regular rhythm Heart sounds: S1 normal heart sound present and S2 normal heart sound present Back/Spine/Pelvis Other: Reproducible tenderness in the upper right side paraspinal thoracic region Coding Level of Care Code Est Pt Level 4 (80853) Diagnoses Hyperlipidemia E78.5 Age related osteoporosis M81.0 Thoracic radiculopathy M54.14 Assessment & Plan Assessment & Plan (1) Hyperlipidemia: Code(s): E78.5 - Hyperlipidemia, unspecified Category: Medical Plan: Continue statin (2) Age related osteoporosis: Comment: DEXA 8/22 T score -2.8, started Fosamax, 01/2024 -2.2 improvement, cont Fosamax for 2 more years Code(s): M81.0 - Age-related osteoporosis without current pathological fracture Category: Medical Plan: Continue Fosamax and vitamin D (3) Thoracic radiculopathy: Comment: MRI 11/2024 DJD changes, no spinal or radicular compression Code(s): M54.14 - Radiculopathy, thoracic region Category: Medical Plan: Continue exercises Orders: Orders Lipid Panel 6 Months E55.9 - Vitamin D deficiency, unspecified, E78.5 - Hyperlipidemia, unspecified, I10 - Essential (primary) hypertension, M81.0 - Age-related osteoporosis without current pathological fracture Comprehensive [place]. Panel Fast 6 Months E55.9 - Vitamin D deficiency, unspecified, E78.5 - Hyperlipidemia, unspecified, I10 - Essential (primary) hypertension, M81.0 - Age-related osteoporosis without current pathological fracture Complete Blood Count Auto Diff 6 Months E55.9 - Vitamin D deficiency, unspecified, E78.5 - Hyperlipidemia, unspecified, I10 - Essential (primary) hypertension, M81.0 - Age-related osteoporosis without current pathological fracture Vitamin D 25-OH Total 6 Months E55.9 - Vitamin D deficiency, unspecified, E78.5 - Hyperlipidemia, unspecified, I10 - Essential (primary) hypertension, M81.0 - Age-related osteoporosis without current pathological fracture
== END 2024-12-14 08:42 | disposition home or self-care (01) ==
LOC: HO.HMCC 07:59
PROVIDERS: PCP Internal Medicine; Visit Provider Internal Medicine
DX: E78.5 Hyperlipidemia, unspecified (principal); M81.0 Age-related osteoporosis without current pathological fracture; M54.14 Radiculopathy, thoracic region

== ENCOUNTER → 2024-12-14 07:58 | Outpatient (BNVA) | payer MEDICARE, SELFPAY | PROVIDERS: PCP Internal Medicine; Visit Provider Internal Medicine | DX: M81.0 Age-related osteoporosis without current pathological fracture (principal); E78.5 Hyperlipidemia, unspecified; M54.14 Radiculopathy, thoracic region; Z79.899 Other long term (current) drug therapy | CPT/HCPCS: 99212 ==